=== PATIENT | female | born 1965 | race Caucasian/White ===

== ENCOUNTER → 2017-06-01 10:02 | Outpatient (CLI) | payer BC, SELFPAY ==
--- NOTE | 2017-06-01 10:09 | XR_ITS ---
XR chest 2V HISTORY: ITS.REASON: COUGH,COPD ORDERING PHYSICIAN: Angélica Mark PATIENT AGE: 52 years COMPARISON: 06/13/2016 FINDINGS: The cardiomediastinal silhouette and pulmonary vascularity are within normal limits. The lungs are clear without infiltrates, suspicious nodules, or pleural effusions. No acute bony abnormalities. IMPRESSION: Negative chest, no acute finding
== END ==
PROVIDERS: PCP Nurse Practitioner Family; Visit Provider Nurse Practitioner Family
DX: R04.2 Hemoptysis (principal); J44.0 Chronic obstructive pulmonary disease with (acute) lower respiratory infection
CPT/HCPCS: 71046

== ENCOUNTER 2017-06-18 11:29 | Emergency (ER) | payer BC, SELFPAY ==
[2017-06-18 11:29] VITALS: BP 135/90; PULSE 98; RESP 22; TEMP 37.2; O2SAT 98; BMI 23.1
--- NOTE | 2017-06-18 11:37 | HMH.EDABDPAI ---
ED Disposition Clinical Impression: Enteritis Abdominal pain Qualifiers: Abdominal location: left lower quadrant Qualified Code(s): R10.32 - Left lower quadrant pain Disposition: Home, Self-Care Condition on Discharge: Good Instructions: DI for Acute Abdomen Additional Instructions: Clear liquids overnight, Zofran for nausea, Bentyl for cramping pain, see Dr. Kumar in one to two days for recheck. Prescriptions: Ondansetron [Zofran 4mg ODT] 4 mg PO Q8HP PRN #10 tab.rapdis PRN Reason: nausea/vomiting Dicyclomine HCl [Bentyl 10mg capsule] 10 mg PO TID PRN #10 cap PRN Reason: abdominal pain Referrals: Angélica aMrk APRN [Primary Care Provider] - - Critical Care Critical Care Time: No Attestation: On , the high probability of a clinically significant, sudden or life threatening deterioration of the following system(s) required my full and direct attention, intervention and personal management. The time I documented below is in addition to time spent performing reported procedures but includes the following listed in this critical care notation. Medical Decision Making - Medical Records Medical records reviewed: Yes: I reviewed the patient's medical records. Vital Signs: 06/18/17 11:29 06/18/17 11:59 06/18/17 12:29 Temperature 99.0 F 98.0 F Temperature Source Oral Oral Pulse Rate [Left Brachial] 98 H 106 H 70 Respiratory Rate 22 22 18 Blood Pressure [Left Arm] 135/90 186/76 138/80 Blood Pressure Mean [Left Arm] 105 112 99 Blood Pressure Source [Left Arm] Automatic Cuff Automatic Cuff Manual Cuff/ Doppler Blood Pressure Position [Left Arm] Sitting Sitting Supine 02 Sat by Pulse Oximetry 98 98 98 Oxygen Delivery Method Room Air Room Air Room Air - Lab Data Lab results reviewed: Yes: I reviewed the patient's lab results. Lab Results 06/18/17 11:35: WBC 10.0, RBC 4.72, Hgb 14.0, Hct 41.8, MCV 88.6, MCH 29.6, MCHC 33.4, RDW 12.0, Plt Count 268, MPV 7.2 L, Neut % (Auto) 64.7, Lymph % (Auto) 27.0, Elbert % (Auto) 5.8, Eos % (Auto) 1.9, Baso % (Auto) 0.6, Neut # (Auto) 6.5, Lymph # (Auto) 2.7, Elbert # (Auto) 0.6, Eos # (Auto) 0.2, Baso # (Auto) 0.1 06/18/17 11:35: Sodium 140, Potassium 3.5, Chloride 104, Carbon Dioxide 27, Anion Gap 12.5, BUN 7, Creatinine 0.69, Estimated Creat Clear 90, Estimated GFR 89, Est GFR ( Amer) 107, Glucose 119 H, Calcium 8.9, Total Bilirubin 0.2, AST 12 L, ALT 24, Alkaline Phosphatase 133 H, Total Creatine Kinase 59, CK-MB (CK-2) 0.7, CK-MB (CK-2) Rel Index 1.2, Troponin I < 0.02, Total Protein 7.7, Albumin 4.1, Globulin 3.6 H, Albumin/Globulin Ratio 1.1, Amylase 75, Lipase 213 06/18/17 11:55: Urine Color Yellow, Urine Appearance Clear, Urine pH 6.0, Ur Specific Dorr <= 1.005, Urine Protein Negative, Urine Glucose (UA) Negative, Urine Ketones Negative, Urine Blood Negative, Urine Nitrate Negative, Urine Bilirubin Negative, Urine Urobilinogen 0.2, Ur Leukocyte Esterase Negative, Urine RBC Occasional, Urine WBC 3-5, Ur Squamous Epith Cells 5-10, Urine Bacteria 1+ Result diagrams: 06/18/17 11:35 06/18/17 11:35 Orders (Tests/Meds): ED MEDICATIONS Discontinued Medications Generic Name Dose Route Start Last Admin Trade Name Beverly PRN Reason Stop Dose Admin Sodium Chloride 1,000 mls @ 999 mls/hr 06/18/17 11:45 06/18/17 11:47 Sod Chlor 0.9% 1000ml Bag IV 06/18/17 12:45 999 mls/hr .Q1H1M PABLO Administration Morphine Sulfate 4 mg 06/18/17 11:45 06/18/17 11:46 Morphine 4mg/Ml Syringe IV 06/18/17 11:46 4 mg ONCE ONE Administration Morphine Sulfate 4 mg 06/18/17 11:48 06/18/17 11:58 Morphine 4mg/Ml Syringe IV 06/18/17 11:49 4 mg ONCE ONE Administration Morphine Sulfate 4 mg 06/18/17 11:56 Morphine 4mg/Ml Syringe IV 06/18/17 11:57 ONCE ONE Ondansetron HCl 4 mg 06/18/17 11:44 06/18/17 11:46 Zofran 4mg/2ml Vial IV 06/18/17 11:45 4 mg ONCE ONE Administration ORDERS Category Date Time Status Chest XR -
--- NOTE | 2017-06-18 11:43 | CT_ITS ---
CT abdomen pelvis wo con CLINICAL INDICATION: Left flank pain with nausea and vomiting ITS.REASON: ABDOMINAL AND BACK PAIN ORDERING PHYSICIAN: Kaylyn Herr MD PATIENT AGE: 52 years COMPARISON: 06/23/2016 TECHNIQUE: Axial images obtained with sagittal and coronal reformats. PROCEDURE: Oral Contrast: None IV Contrast: None . FINDINGS: The lung bases are clear. There is a 4 mm isodensity in the right hepatic lobe posteriorly nonspecific and unchanged. There has been a prior cholecystectomy. No ductal dilatation. The spleen, adrenal glands, and pancreas are unremarkable. Previously noted isodensity adjacent to the tail of the pancreas is less apparent. There are several right renal calculi the largest in the lower pole measuring up to 5 mm. No obstructing ureteral calculus is evident. No intestinal obstruction or free air is evident. There is diverticulosis of the colon but no evidence of diverticulitis. There are some fluid-filled small bowel loops present in the upper abdomen are nonspecific. These are slightly distended. No obvious transition point is evident. No evidence of appendicitis. There is a fairly well-circumscribed cystic mass in the left upper quadrant. This lies along the superior aspect of the splenic flexure of the colon measuring 3 cm. There is some mild stranding of the fat adjacent to this lesion. This may represent a pseudocyst. Previously this measured 4.6 x 4.2 cm No pelvic mass abnormal fluid collection or focal inflammatory change evident within the pelvis. As been prior hysterectomy. No acute bony anomalies. IMPRESSION: 1. 3 cm cystic lesion along the superior aspect of the splenic flexure of the colon with some mild stranding of the fat adjacent to this lesion. This may represent a pseudocyst in this patient with history of pancreatitis. This is slightly smaller when compared to the previous exam. There is some stranding of the fat adjacent to this lesion which could represent some ongoing inflammatory change. 2. Pancreas has an unremarkable appearance. 3. Right nephrolithiasis. 4. Mildly distended small bowel loops in the left upper quadrant could be due to ileus or enteritis.
[2017-06-18 11:57] LABS: Basophils # 0.1 K/mm3 (0-0.2); Basophils % 0.6 % (0.1-2.0); Eosinophils # 0.2 K/mm3 (0.0-0.4); Eosinophils % 1.9 % (0.1-12.0); Hematocrit 41.8 % (37.0-47.0); Lymphocytes # 2.7 K/mm3 (0.7-4.5); Mean Corpuscular HGB Conc 33.4 g/dL (31.8-35.4); Mean Corpuscular Hemoglobin 29.6 pg (27.0-31.2); Mean Corpuscular Volume 88.6 fl (81-99); Mean Platelet Volume 7.2 fl (7.4-10.4); Monocytes # 0.6 K/mm3 (0.1-1.0); Monocytes % 5.8 % (1.7-9.3); Neutrophils # 6.5 K/mm3 (1.8-7.8); Neutrophils % 64.7 % (37.0-80.0); Platelet Count 268 K/mm3 (142-424); Red Blood Count 4.72 M/mm3 (4.20-5.40)
[2017-06-18 11:59] VITALS: BP 186/76; PULSE 106; RESP 22; O2SAT 98
[2017-06-18 12:03] LABS: Appearance,Urine CLEAR (Clear); Bilirubin,Urine Negative (Negative); Blood, Urine Negative (Negative); Color,Urine YELLOW (Yellow); Glucose,Urine (UA) Negative (Negative); Ketones,Urine Negative (Negative); Leukocyte Esterase,Urine Negative (Negative); Nitrate,Urine Negative (Negative); Protein,Urine Negative (Negative); Specific Gravity, Urine <= 1.005 (1.005-1.030); Urobilinogen,Urine 0.2 EU/dl (0.2)
[2017-06-18 12:04] LABS: Microscopic, Urine URINE MICROSCOPIC (MICROSCOPIC)
[2017-06-18 12:18] LABS: Bacteria,Urine 1+ /lpf; RBC,Urine Occasional #/hpf (0-3)
[2017-06-18 12:22] LABS: Alanine Aminotransferase 24 U/L (12-78); Albumin Level 4.1 gm/dL (3.4-5.0); Albumin/Globulin Ratio 1.1 (1.1-1.8); Alkaline Phosphatase 133 U/L (46-116); Amylase 75 U/L (25-125); Anion Gap 12.5 mEq/L (5-15); Aspartate Amino Transferase 12 U/L (15-37); Bilirubin,Total 0.2 mg/dL (0.2-1.0); Blood Urea Nitrogen 7 mg/dL (7-18); CKMB Relative Index 1.2 U/L (0-4.0); Calcium 8.9 mg/dL (8.5-10.1); Carbon Dioxide 27 mmol/L (21.0-32.0); Chloride 104 mmol/L (98-107); Creatine Kinase 59 U/L (26-192); Creatine Kinase MB 0.7 mg/ml (0.0-3.6); Creatinine Clearance Estimated 90 mL/min (0-300); Creatinine,Serum 0.69 mg/dL (0.55-1.02); Estimated Glomerular Filt Rate 89 ml/min (>60); GFR (African American) 107 ML/MIN (>60); Globulin 3.6 gm/dl (1.3-3.2); Glucose 119 mg/dL (74-106); Lipase 213 u/L (73-393); Potassium 3.5 mmoL/L (3.5-5.1); Sodium 140 mmol/L (136-145); Total Protein,Serum 7.7 gm/dL (6.4-8.2); Troponin I < 0.02 ng/ml (0.00-0.06)
[2017-06-18 12:29] VITALS: BP 138/80; PULSE 70; RESP 18; TEMP 36.7; O2SAT 98
--- NOTE | 2017-06-18 12:51 | XR_ITS ---
XR chest portable HISTORY: Chest pain with shortness of air and cough ITS.REASON: abd pain w left arm pain ORDERING PHYSICIAN: Kaylyn Herr MD PATIENT AGE: 52 years COMPARISON: To 618 FINDINGS: The cardiomediastinal silhouette and pulmonary vascularity are within normal limits. The lungs are clear without infiltrates, suspicious nodules, or pleural effusions. No acute bony abnormalities. IMPRESSION: No change with no acute finding
[2017-06-18 13:11] VITALS: BP 116/70; PULSE 89; RESP 20; TEMP 37.1; O2SAT 100
== END 2017-06-18 13:11 | disposition home or self-care (01) ==
PROVIDERS: Emergency Provider Emergency Medicine; PCP Nurse Practitioner Family
DX: K52.9 Noninfective gastroenteritis and colitis, unspecified (principal); K86.1 Other chronic pancreatitis
CPT/HCPCS: 71045; 74176; 80053; 81001; 82150; 82550; 82553; 83690; 84484; 85025; 93005; 93041; 96365; 96374; 96375; 96376; 99283; J2405

== ENCOUNTER 2017-07-12 09:55 | Outpatient (CLI) | payer BC, SELFPAY ==
[2017-07-12 10:20] VITALS: BP 90/45; PULSE 66; RESP 20; TEMP 36.9; O2SAT 95
[2017-07-12 11:20] VITALS: BP 102/58; PULSE 68; RESP 18; TEMP 36.9; O2SAT 96
[2017-07-12 12:20] VITALS: BP 103/70; PULSE 68; RESP 20; TEMP 36.9; O2SAT 96
[2017-07-12 13:00] VITALS: BP 112/48; PULSE 68; RESP 20; TEMP 36.7; O2SAT 96
== END 2017-07-12 13:00 | disposition home or self-care (01) ==
LOC: INF 09:58
PROVIDERS: PCP Nurse Practitioner; Visit Provider Nurse Practitioner
DX: R11.2 Nausea with vomiting, unspecified (principal)
CPT/HCPCS: 96360; 96361

== ENCOUNTER → 2017-07-14 10:43 | Outpatient (POV) | payer BC, SELFPAY | PROVIDERS: PCP Nurse Practitioner; Visit Provider Physician Assistant Medical | DX: Z00.00 Encounter for general adult medical examination without abnormal findings (principal) ==

== ENCOUNTER 2017-07-14 12:02 | Emergency (ER) | payer BC, SELFPAY ==
[2017-07-14 12:04] VITALS: BP 121/74; PULSE 101; RESP 16; O2SAT 97
[2017-07-14 12:07] VITALS: BP 140/74; PULSE 104; RESP 20; TEMP 37.2; O2SAT 98; BMI 21.1
--- NOTE | 2017-07-14 12:42 | CT_ITS ---
CT abdomen pelvis w con CLINICAL INDICATION: Abdominal pain ITS.REASON: poss. pancreatitis/abd pain ORDERING PHYSICIAN: Cirilo Desir MD PATIENT AGE: 52 years COMPARISON: 06/18/2017 TECHNIQUE: Axial images obtained with sagittal and coronal reformats. All CT scans at the facility use one or more dose reduction, viz: automated exposure control; ma/kV adjustment per patient size (including targeted exams where dose is matched to indication; i.e. head); or iterative reconstruction technique. PROCEDURE: Oral Contrast: Gastroview IV Contrast: 75 mL [id number] . FINDINGS: Minimal atelectatic changes in the lung bases. There has been a prior cholecystectomy. There is mild intra and extrahepatic biliary ductal dilatation. A 5 mm isodense involves the right lobe of the liver may represent small hepatic cyst. The adrenal glands have an unremarkable appearance. There is a 6 mm stone or cluster of stones in the lower pole the right kidney. No hydronephrosis or obstructing ureteral calculi. There is stranding of the fat between the greater curvature of the stomach and the spleen and along the anterior aspect of the pancreatic tail. There is thickening of the wall of the greater curvature of the stomach. There is also mild thickening of the antrum of the stomach. A complex fluid collection is present in the left upper quadrant. This is associated with the splenic flexure of the colon. It is difficult to determine the definite dimensions of the mass as it is associated directly with the splenic flexure of the colon. The isodense portion of this lesion measures 3.9 cm AP and 3.2 cm transverse previously 3.2 x 3.4 cm. This may represent a pseudocyst or an abscess. A necrotic mass from the splenic flexure is also a consideration but felt to be less likely. Stranding of the fat in the left upper quadrant is somewhat worse on today's exam. No intestinal obstruction or free air. No evidence of appendicitis or diverticulitis. There is a small amount fluid in the pelvis for urinary bladder is somewhat distended. There is been prior hysterectomy. IMPRESSION: 1. Slight increase in stranding of the fat within the left upper quadrant adjacent to the pancreatic tail with slight increased thickening of the lateral wall the stomach consistent with pancreatitis with mild phlegmonous change. 2. Slight increase in size of cystic lesion within the left upper quadrant associated with the splenic flexure and may represent a pseudocyst of the splenic flexure. Abscess is included in the differential diagnosis. Necrotic mass of the splenic flexure also a consideration but felt to be less likely
[2017-07-14 12:52] LABS: Basophils % 0.3 % (0.1-2.0); Eosinophils % 0.2 % (0.1-12.0); Hemoglobin 13.1 g/dL (12.2-16.2); Lymphocytes # 1.6 K/mm3 (0.7-4.5); Lymphocytes % 14.4 K/mm3 (10-50); Mean Corpuscular HGB Conc 33.5 g/dL (31.8-35.4); Mean Corpuscular Hemoglobin 30.3 pg (27.0-31.2); Mean Corpuscular Volume 90.3 fl (81-99); Mean Platelet Volume 7.2 fl (7.4-10.4); Neutrophils # 8.3 K/mm3 (1.8-7.8); Neutrophils % 76.1 % (37.0-80.0); Platelet Count 292 K/mm3 (142-424); Red Blood Count 4.32 M/mm3 (4.20-5.40); Red Cell Distribution Width 12.5 % (11.5-17.5); White Blood Count 10.9 K/mm3 (4.8-10.8)
[2017-07-14 12:59] LABS: Alanine Aminotransferase 16 U/L (12-78); Albumin Level 3.4 gm/dL (3.4-5.0); Albumin/Globulin Ratio 0.9 (1.1-1.8); Alkaline Phosphatase 168 U/L (46-116); Amylase 49 U/L (25-125); Anion Gap 14.1 mEq/L (5-15); Bilirubin,Total 0.6 mg/dL (0.2-1.0); Blood Urea Nitrogen 12 mg/dL (7-18); Calcium 8.8 mg/dL (8.5-10.1); Carbon Dioxide 26 mmol/L (21.0-32.0); Chloride 101 mmol/L (98-107); Creatinine Clearance Estimated 124 mL/min (0-300); Creatinine,Serum 0.47 mg/dL (0.55-1.02); Estimated Glomerular Filt Rate 138 ml/min (>60); GFR (African American) 167 ML/MIN (>60); Glucose 92 mg/dL (74-106); Lipase 184 u/L (73-393); Sodium 138 mmol/L (136-145); Total Protein,Serum 7.4 gm/dL (6.4-8.2)
[2017-07-14 13:01] LABS: Aspartate Amino Transferase 13 U/L (15-37); Potassium 3.1 mmoL/L (3.5-5.1)
--- NOTE | 2017-07-14 13:07 | HMH.EDGENADL ---
ED Disposition Clinical Impression: Idiopathic chronic pancreatitis, Pancreatic pseudocyst Disposition: Home, Self-Care Condition on Discharge: Fair Instructions: DI for Pancreatitis Additional Instructions: Ryan Adamson will contact you to schedule EUS and cyst drainage. He has transmitted a prescription for Zofran for nausea and vomiting. [place] as prescribed for pain. Additional instructions for CONTROLLED SUBSTANCES: You have been prescribed a medication that is a controlled substance. Controlled substances include pain medications known as opiates and sedative nerve medications known as benzodiazepines. Some common opiates include: Codeine (such as Tylenol #3) Hydrocodone (Vicodin, Lortab, Lorcet, [place]) Oxycodone (Percocet, Percodan, Oxycodone, Oxy IR) Some common benzodiazepines include: Diazepam (Valium) Lorazepam (Ativan) Alprazolam (Xanax) Clonazepam (Klonopin) Oxazepam (Serax) All of these controlled substances are highly addictive and frequently abused. Misuse can and frequently does lead to addiction as well as overdose and . Medication should be stored in a locked cabinet or other secure storage unit. Do not store the medication in a motor vehicle. Short term supplies, 3 days or less, are prescribed because of the highly addictive nature of the medication. Any of the controlled substance medication NOT taken should be disposed of properly and NOT SAVED. The recommended method of disposing of unused medications is: Place the medicines in a sealable plastic bag. If the medicine is a solid, crush it or add water to dissolve it. Add something undesirable (cat litter, coffee grounds, etc.) Dispose of sealed bag in household trash Do not flush or pour unused medicines down a sink or drain. Controlled substances should not be shared, given away or sold. Because of the addictive nature and frequent abuse, these medications are sometimes stolen. These medications should be kept in a safe place where they cannot be stolen. Do not keep them in your car or purse. Lost or stolen prescriptions for controlled substances WILL NOT BE REFILLED in this emergency department, regardless of whether a police report was filed. Prescriptions: Hydrocod/Acet 5/325 mg [[place] 5/325mg tablet] 1 tab PO Q6HP PRN #10 tab PRN Reason: Pain Referrals: Lynn Matt APRN [Primary Care Provider] - - Critical Care Critical Care Time: No Attestation: On 07/14/17, the high probability of a clinically significant, sudden or life threatening deterioration of the following system(s) required my full and direct attention, intervention and personal management. The time I documented below is in addition to time spent performing reported procedures but includes the following listed in this critical care notation. Medical Decision Making - Stepan Inquiry Pt receiving controlled substance: Yes Ste[place] was queried for this patient: Yes Reference #:: [id number] Risks and benefits of using a controlled substance: were discussed with pt by me Comment: 1 rx for methadone july 2016 Vital Signs: 07/14/17 12:04 07/14/17 12:07 07/14/17 14:21 Temperature 98.9 F Temperature Source Oral Pulse Rate [Right Brachial] 101 H 104 H 88 Respiratory Rate 16 20 18 Blood Pressure [Right Arm] 121/74 140/74 153/86 Blood Pressure Mean [Right Arm] 89 96 108 Blood Pressure Source [Right Arm] Automatic Cuff Automatic Cuff Blood Pressure Position [Right Arm] Sitting Sitting 02 Sat by Pulse Oximetry 97 98 98 Oxygen Delivery Method Room Air Room Air 07/14/17 14:30 07/14/17 16:00 Temperature Temperature Source Pulse Rate [Right Brachial] 107 H 94 H Respiratory Rate 16 16 Blood Pressure [Right Arm] 113/39 111/67 Blood Pressure Mean [Right Arm] 63 81 Blood Pressure Source [Right Arm] Blood Pressure Position [Right Arm] 02 Sat by Pulse Oximetry 97 97 Oxygen Delivery Method - Lab Data Lab Results
--- NOTE | 2017-07-14 13:20 | PC.NURSE ---
Report received from DENG Arellano at this time.
[2017-07-14 14:21] VITALS: BP 153/86; PULSE 88; RESP 18; O2SAT 98
[2017-07-14 14:30] VITALS: BP 113/39; PULSE 107; RESP 16; O2SAT 97
[2017-07-14 16:00] VITALS: BP 111/67; PULSE 94; RESP 16; O2SAT 97
--- NOTE | 2017-07-14 16:41 | PC.NURSE ---
TRANSFORMER BUILDER TO PAGE DR MONTOYA (CONSUMER INSIGHT ANALYST FOR DR SHINE)
[2017-07-14 17:06] VITALS: BP 111/66; PULSE 97; RESP 20; TEMP 36.7; O2SAT 97
== END 2017-07-14 17:06 | disposition home or self-care (01) ==
PROVIDERS: Emergency Provider Emergency Medicine; PCP Nurse Practitioner
DX: K86.1 Other chronic pancreatitis (principal); K86.3 Pseudocyst of pancreas; F17.210 Nicotine dependence, cigarettes, uncomplicated; Z79.899 Other long term (current) drug therapy
CPT/HCPCS: 74177; 80053; 82150; 83690; 85025; 96365; 96375; 99284; J2405; Q9967

== ENCOUNTER → 2017-08-13 10:12 | Outpatient (CLI) | payer BC, SELFPAY | PROVIDERS: PCP Nurse Practitioner; Visit Provider Nurse Practitioner | DX: R00.2 Palpitations (principal) | CPT/HCPCS: 93225; 93226 ==

== ENCOUNTER → 2017-11-26 11:11 | Outpatient (CLI) | payer BC, SELFPAY ==
--- NOTE | 2017-11-26 11:39 | XR_ITS ---
XR foot RT min 3V HISTORY: ITS.REASON: RT FOOT PAIN ORDERING PHYSICIAN: Shane Kumar MD PATIENT AGE: 52 years COMPARISON: None FINDINGS: No fracture or dislocation. No lytic or blastic change. There is normal mineralization.. The joint spaces are well-preserved. No significant degenerative/arthritic changes. No erosive changes evident. IMPRESSION: Negative, no acute finding
== END ==
PROVIDERS: PCP Family Medicine; Visit Provider Family Medicine
DX: M79.671 Pain in right foot (principal)
CPT/HCPCS: 73630

== ENCOUNTER → 2018-12-13 08:58 | Outpatient (POV) | payer BC, SELFPAY | PROVIDERS: Visit Provider Otolaryngology | DX: Z00.00 Encounter for general adult medical examination without abnormal findings (principal) ==

== ENCOUNTER 2020-01-18 13:16 | Emergency (ER) | payer OTHER, SELFPAY ==
--- NOTE | 2020-01-18 13:16 | ECG_ITS ---
APPROVED REPORT Exam: Resting ECG HR:83 bpm ECG Measurements Heart Rate 83 AXES MT 140 P 74 QRSd 70 QRS 65 QT 416 T 52 QTc 488 <Conclusion> Normal sinus rhythm Prolonged QT Abnormal ECG Electronically signed by : Shane Mojica, 01/20/2020 06:27:35
[2020-01-18 13:32] VITALS: BP 147/84; PULSE 81; RESP 16; TEMP 36.9; O2SAT 98; BMI 21.6
--- NOTE | 2020-01-18 13:39 | XR_ITS ---
PROCEDURE: XR CHEST PORTABLE CLINICAL HISTORY: CHEST PAIN COMPARISON: CR CXR1VP XR chest portable from 06/18/2017 CR CXR1VP XR chest portable from 04/09/2018 CR XR CHEST PORTABLE from 01/10/2019 FINDINGS: The cardiomediastinal silhouette and pulmonary vascularity are within normal limits. The lungs are clear without infiltrates, suspicious nodules, or pleural effusions. No acute bony abnormalities. IMPRESSION: No acute findings. Dictated by: Tex Mullen MD 01/18/2020 15:23 Tex Mullen MD in [place] 01/18/2020 15:23
[2020-01-18 13:56] LABS: Basophils # 0.1 K/mm3 (0-0.2); Basophils % 0.6 % (0.1-2.0); Eosinophils # 0.2 K/mm3 (0.0-0.4); Eosinophils % 2.4 % (0.1-12.0); Hematocrit 43.6 % (37.0-47.0); Hemoglobin 14.2 g/dL (12.2-16.2); Lymphocytes # 2.6 K/mm3 (0.7-4.5); Lymphocytes % 31.2 % (10-50); Mean Corpuscular HGB Conc 32.5 g/dL (31.8-35.4); Mean Corpuscular Hemoglobin 29.6 pg (27.0-31.2); Mean Corpuscular Volume 91.1 fl (81-99); Mean Platelet Volume 6.9 fl (7.4-10.4); Monocytes # 0.6 K/mm3 (0.1-1.0); Monocytes % 7.2 % (1.7-9.3); Neutrophils # 4.9 K/mm3 (1.8-7.8); Neutrophils % 58.6 % (37.0-80.0); Platelet Count 301 K/mm3 (142-424); Red Blood Count 4.78 M/mm3 (4.20-5.40); Red Cell Distribution Width 12.9 % (11.5-17.5); White Blood Count 8.3 K/mm3 (4.8-10.8)
[2020-01-18 13:58] LABS: Amylase 76 U/L (30-110); Anion Gap 9.9 mEq/L (5-15); Blood Urea Nitrogen 9 mg/dl (7-17); Calcium 10.1 mg/dl (8.4-10.2); Carbon Dioxide 30 mmol/L (22.0-30.0); Chloride 105 mmol/L (98-107); Creatinine Clearance Estimated 146 mL/min (50-200); Estimated Glomerular Filt Rate 165 ml/min (>60); GFR (African American) 200 ML/MIN (>60); Glucose 101 mg/dl (74-100); Potassium 3.9 mmoL/L (3.5-5.1); Sodium 141 mmol/L (136-145)
[2020-01-18 13:59] LABS: Alanine Aminotransferase 17 U/L (12-78); Albumin Level 4.9 g/dl (3.5-5.0); Alkaline Phosphatase 162 U/L (38-126); Aspartate Amino Transferase 25 U/L (14-36); Bilirubin,Direct 0.2 mg/dl (0.0-0.4); Bilirubin,Indirect 0.2 mg/dL (0.0-0.9); Bilirubin,Total 0.4 mg/dl (0.2-1.3); Bilirubin,Unconjugated 0.2 mg/dL (0.0-1.1); Lipase 140 U/L (23-300); Total Protein,Serum 8.5 g/dl (6.3-8.2)
[2020-01-18 14:00] VITALS: BP 120/71; PULSE 78
[2020-01-18 14:11] LABS: Troponin I < 0.01 ng/ml (0.00-0.034)
[2020-01-18 14:49] VITALS: BP 120/82; PULSE 71; RESP 20; O2SAT 97
[2020-01-18 15:53] LABS: Creatine Kinase 43 U/L (30-135)
[2020-01-18 16:00] VITALS: BP 123/74; PULSE 66
[2020-01-18 16:30] VITALS: BP 116/76; PULSE 70
--- NOTE | 2020-01-18 16:34 | PC.NURSE ---
AT BEDSIDE UPDATED ON PLAN OF CARE
[2020-01-18 17:08] LABS: Troponin I < 0.01 ng/ml (0.00-0.034)
--- NOTE | 2020-01-18 18:19 | HMH.EDCP ---
ED Disposition Clinical Impression: Hypertension, Chest pain, atypical Disposition: Home, Self-Care Condition on Discharge: Good Instructions: DI for Atypical Chest Pain Additional Instructions: Please follow-up with primary care to get an outpatient stress test. Referrals: PCP,No [Primary Care Provider] - - Critical Care Critical Care Time: No Attestation: On 01/18/20, the high probability of a clinically significant, sudden or life threatening deterioration of the following system(s) required my full and direct attention, intervention and personal management. The time I documented below is in addition to time spent performing reported procedures but includes the following listed in this critical care notation. Medical Decision Making - Medical Records Medical records reviewed: Yes: I reviewed the patient's medical records. - Stepan Inquiry Pt receiving controlled substance: No Vital Signs: 01/18/20 13:32 01/18/20 14:00 01/18/20 14:49 Temperature 98.5 F Temperature Source Oral Pulse Rate [Left Radial] 81 78 71 Respiratory Rate 16 20 Blood Pressure [Right Arm] 147/84 H 120/71 120/82 Blood Pressure Mean [Right Arm] 105 87 94 Blood Pressure Source [Right Arm] Automatic Cuff Blood Pressure Position [Right Arm] Sitting Sitting Sitting 02 Sat by Pulse Oximetry 98 97 Oxygen Delivery Method Room Air Nasal Cannula Oxygen Flow Rate (LPM) 2 01/18/20 16:00 01/18/20 16:30 Temperature Temperature Source Pulse Rate [Left Radial] 66 70 Respiratory Rate Blood Pressure [Right Arm] 123/74 116/76 Blood Pressure Mean [Right Arm] 90 89 Blood Pressure Source [Right Arm] Blood Pressure Position [Right Arm] Sitting Sitting 02 Sat by Pulse Oximetry Oxygen Delivery Method Oxygen Flow Rate (LPM) - Lab Data Lab results reviewed: Yes: I reviewed the patient's lab results. Lab Results 01/18/20 13:10: WBC 8.3, RBC 4.78, Hgb 14.2, Hct 43.6, MCV 91.1, MCH 29.6, MCHC 32.5, RDW 12.9, Plt Count 301, MPV 6.9 L, Neut % (Auto) 58.6, Lymph % (Auto) 31.2, Rice % (Auto) 7.2, Eos % (Auto) 2.4, Baso % (Auto) 0.6, Neut # (Auto) 4.9, Lymph # (Auto) 2.6, Rice # (Auto) 0.6, Eos # (Auto) 0.2, Baso # (Auto) 0.1 01/18/20 13:10: Sodium 141, Potassium 3.9, Chloride 105, Carbon Dioxide 30, Anion Gap 9.9, BUN 9, Creatinine 0.40 L, Estimated Creat Clear 146, Estimated GFR 165, Est GFR ( Amer) 200, Glucose 101 H, Calcium 10.1, Troponin I < 0.01, Amylase 76 01/18/20 13:10: Total Bilirubin 0.4, Direct Bilirubin 0.2, Conjugated Bilirubin 0.0, Indirect Bilirubin 0.2, Unconjugated Bilirubin 0.2, AST 25, ALT 17, Alkaline Phosphatase 162 H, Total Protein 8.5 H, Albumin 4.9, Lipase 140 01/18/20 13:10: Total Creatine Kinase 43 01/18/20 16:25: Troponin I < 0.01 Result diagrams: 01/18/20 13:10 01/18/20 13:10 Orders (Tests/Meds): ED MEDICATIONS Discontinued Medications Generic Name Dose Route Start Last Admin Trade Name Freq PRN Reason Stop Dose Admin Nitroglycerin 1 gm 01/18/20 13:40 01/18/20 13:48 Nitroglycerin 1 Inch Oint Udp TD 01/18/20 13:41 1 gm ONCE ONE Administration ORDERS Category Date Time Status Troponin I Q3H Lab 01/18/20 19:45 Ordered - Radiology Data #1 Image(s): Chest Image Reviewed: Yes I reviewed the patient's radiology image w/the ED provider Preliminary Findings: Normal/NAD - ECG Data Tracing #1 I reviewed this ECG and interpreted as documented below: Normal Sinus Rhythm: Yes Medical Decision Narrative: Had a initial troponin and a 3-hour troponin both which were negative patient is presently pain-free. Chest Pain HPI - General Chief Complaint: Chest Pain Stated Complaint: chest pain Time Seen by Provider: 01/18/20 18:19 Mode of Arrival: EMS Source of Information: Patient Limitations: No Limitations Description of Symptoms (Recalled from ER Triage Doc. by RN): TO ED PER SQUAD WITH C/O PRESSURE CHEST PAIN RADIATING INTO BACK, SOB, NAUSEA STAR
[2020-01-18 18:26] VITALS: BP 123/71; PULSE 78; RESP 16; TEMP 36.6; O2SAT 98
== END 2020-01-18 18:27 | disposition home or self-care (01) ==
PROVIDERS: Emergency Provider Family Medicine
DX: R07.89 Other chest pain (principal); I10 Essential (primary) hypertension; K21.9 Gastro-esophageal reflux disease without esophagitis; G43.709 Chronic migraine without aura, not intractable, without status migrainosus; J44.9 Chronic obstructive pulmonary disease, unspecified; Z86.73 Personal history of transient ischemic attack (TIA), and cerebral infarction without residual deficits; F17.210 Nicotine dependence, cigarettes, uncomplicated; Z79.899 Other long term (current) drug therapy
CPT/HCPCS: 71045; 80048; 80076; 82150; 82550; 83690; 84484; 85025; 93005; 99284

== ENCOUNTER → 2020-03-05 08:28 | Outpatient (CLI) | payer OTHER, SELFPAY | PROVIDERS: PCP Family Medicine; Visit Provider Family Medicine | DX: Z03.818 Encounter for observation for suspected exposure to other biological agents ruled out (principal) | CPT/HCPCS: U0003 ==

== ENCOUNTER → 2020-05-24 13:30 | Outpatient (CLI) | payer OTHER, SELFPAY ==
--- NOTE | 2020-05-24 15:43 | CA_ITS ---
APPROVED REPORT EXAM: Comprehensive 2D, Doppler, and color-flow Echocardiogram Hunter Guide: Dipti Best RVT Ht: 5 ft 5 in Wt: 140lbs BSA: 1.70 BP: 146/59 mmHg Indications: SOA,EDEMA,SMOKER,GERD 2D Dimensions LVOT 2.09 cm (M/F) 1.5-2.5 M-Mode Dimensions RVDd 2.75 cm (0.9-2.6) LA Diam 3.21 cm (1.9-4.0) LVDd 4.44 cm (3.5-5.7) Ao Diam 2.48 cm (2.0-3.7) LVDs 2.79 cm (3.5-5.7) IVSd 0.79 cm (0.6-1.1) PWd 0.68 cm (0.6-1.1) EF (Teich) 67.30% FS 37.20% EDV (Teich) 89.60 mL ESV (Teich) 29.30 mL LV Diastology E Decel Time 233.00 (160-240 msec) E/A Ratio 0.9 MED E' 4.70 (< 7 cm/sec) E'/MED E' Ratio 15.62 (>14) LAT E' 5.40 (<10 cm/sec) E/LAT E' Ratio 13.59 (>14) Aortic Valve AI PHT 715.00 ms Mitral Valve MV E Max Ramirez. 73.00 (40-130 cm/s) MV A Velocity 84.00 (40-130 cm/s) E/A Ratio 0.87 MV Decel. Time 233.00 (160-240 ms) MV PHT 68.00 ms Pulmonary Valve PV Peak Velocity 60.00 (50-150 cm/s) Tricuspid Valve TR P. Velocity 334.00 cm/s Left Ventricle Left atrium is mildly enlarged, left ventricle is normal size, mild concentric left ventricular hypertrophy, visually estimated ejection fraction 55% with no regional wall motion abnormality, grade 1 diastolic dysfunction seen with tissue Doppler evidence of raise left atrial pressure. Right Ventricle Right atrium and right ventricle mildly enlarged with normal contractility. Aortic Valve Aortic valve is minimally thickened and fibrosed. There is no aortic stenosis or aortic insufficiency. Mitral Valve Mitral valve leaflets are minimally thickened, there is no mitral stenosis, there is mild mitral regurgitation. Tricuspid Valve Tricuspid valve is grossly normal, there is mild tricuspid regurgitation, tricuspid regurgitation jet velocity is inadequate for calculation of the right ventricular systolic pressure. Pulmonic Valve Pulmonic valve is poorly visualized. Great Vessels Aortic root is normal size. Pericardium No significant pericardial effusion noted. Conclusion 1. Mildly enlarged left atrium, normal left ventricular size, mild concentric left ventricular hypertrophy, visually estimated ejection fraction 55% with no regional wall motion abnormality, grade 1 diastolic dysfunction seen with tissue Doppler evidence of raise left atrial pressure. 2. Mild mitral and tricuspid regurgitation. 3. No significant pericardial effusion noted. Electronically signed by : Dallas Bustillo, 05/24/2020 16:35:25
== END ==
PROVIDERS: PCP Family Medicine; Visit Provider Family Medicine
DX: R06.00 Dyspnea, unspecified (principal); R60.0 Localized edema
CPT/HCPCS: 93306

== ENCOUNTER → 2020-12-19 12:44 | Outpatient (CLI) | payer OTHER, SELFPAY ==
[2020-12-19 13:37] LABS: Basophils # 0.1 K/mm3 (0-0.2); Basophils % 0.9 % (0.1-2.0); Eosinophils # 0.2 K/mm3 (0.0-0.4); Eosinophils % 2.3 % (0.1-12.0); Hematocrit 43.2 % (37.0-47.0); Hemoglobin 14.4 g/dL (12.2-16.2); Lymphocytes # 2.2 K/mm3 (0.7-4.5); Mean Corpuscular HGB Conc 33.4 g/dL (31.8-35.4); Mean Corpuscular Hemoglobin 30.5 pg (27.0-31.2); Mean Corpuscular Volume 91.4 fl (81-99); Mean Platelet Volume 8.1 fl (7.4-10.4); Monocytes # 0.4 K/mm3 (0.1-1.0); Monocytes % 6.1 % (1.7-9.3); Neutrophils # 3.8 K/mm3 (1.8-7.8); Neutrophils % 57.8 % (37.0-80.0); Platelet Count 294 K/mm3 (142-424); Red Blood Count 4.73 M/mm3 (4.20-5.40); Red Cell Distribution Width 12.9 % (11.5-17.5); White Blood Count 6.6 K/mm3 (4.8-10.8)
[2020-12-19 15:01] LABS: Alanine Aminotransferase 16 U/L (12-78); Albumin Level 4.4 g/dl (3.5-5.0); Albumin/Globulin Ratio 1.6 (1.1-1.8); Alkaline Phosphatase 120 U/L (38-126); Anion Gap 14.3 mEq/L (5-15); Aspartate Amino Transferase 20 U/L (14-36); Bilirubin,Total 0.3 mg/dl (0.2-1.3); Blood Urea Nitrogen 19 mg/dl (7-17); Calcium 9.4 mg/dl (8.4-10.2); Carbon Dioxide 28 mmol/L (22.0-30.0); Chloride 100 mmol/L (98-107); Estimated Glomerular Filt Rate 74 ml/min (>60); GFR (African American) 89 ML/MIN (>60); Globulin 2.8 g/dL (1.3-3.2); Glucose 85 mg/dl (74-100); Potassium 3.3 mmoL/L (3.5-5.1); Sodium 139 mmol/L (136-145); Total Protein,Serum 7.2 g/dl (6.3-8.2)
== END ==
PROVIDERS: PCP Family Medicine; Visit Provider Nurse Practitioner Family
DX: Z20.822 Contact with and (suspected) exposure to COVID-19 (principal); U07.1 COVID-19; R50.9 Fever, unspecified; R11.2 Nausea with vomiting, unspecified
CPT/HCPCS: 36415; 80053; 85025; U0003

== ENCOUNTER → 2021-05-12 09:25 | Outpatient (CLI) | payer OTHER, SELFPAY | PROVIDERS: Visit Provider Nurse Practitioner | DX: U07.1 COVID-19 (principal) | CPT/HCPCS: C9803; U0003; U0005 ==

== ENCOUNTER → 2021-08-15 07:52 | Outpatient (CLI) | payer OTHER, SELFPAY ==
--- NOTE | 2021-08-15 07:55 | MM_ITS ---
PROCEDURE INFORMATION: Exam: MG Bilateral Screening 3D Mammography Exam date and time: 08/15/2021 7:54 AM Age: 56 years old Clinical indication: Screening examination TECHNIQUE: Imaging protocol: Bilateral Screening tomosynthesis and 2D mammography including computer-aided detection (CAD) when performed. COMPARISON: 1. MG DMSB DIG MAMM-SCREEN DANA W/CAD 10/12/2016 8:37 AM 2. MG DMSB DIG MAMM-SCREEN DANA 10/10/2015 9:18 AM FINDINGS: MAMMOGRAPHY: Breast composition: The breasts are heterogeneously dense, which may obscure small masses. Mass: None. Architectural distortion: None. Calcifications: No suspicious calcifications. Asymmetric density: None. Skin thickening: None. Axillary adenopathy: None. IMPRESSION: No mammographic evidence of malignancy. Annual screening is recommended unless otherwise clinically indicated. ASSESSMENT: BI-RADS Category 1: Negative
== END ==
PROVIDERS: PCP Family Medicine; Visit Provider Nurse Practitioner Family
DX: Z12.31 Encounter for screening mammogram for malignant neoplasm of breast (principal)
CPT/HCPCS: 77063; 77067

== ENCOUNTER → 2021-11-05 09:41 | Outpatient (CLI) | payer OTHER, SELFPAY | PROVIDERS: PCP Family Medicine; Visit Provider Nurse Practitioner Family | DX: Z20.822 Contact with and (suspected) exposure to COVID-19 (principal); J06.9 Acute upper respiratory infection, unspecified | CPT/HCPCS: C9803; U0003; U0005 ==

== ENCOUNTER → 2021-11-26 09:10 | Outpatient (CLI) | payer OTHER, SELFPAY ==
--- NOTE | 2021-11-26 09:18 | XR_ITS ---
FINAL REPORT CLINICAL HISTORY: ACUTE MIDLINE LOW BACK PAIN WITH RIGHT-SIDED SCIATICA FINDINGS: LUMBAR SPINE 5 views of the lumbar spine were obtained. There is no evidence of fracture or dislocation. The vertebral alignment is normal. There are mild and moderate degenerative changes. There is facet arthropathy at L4-5 and L5-S1. There are moderate vascular calcifications. There are several right renal stones measuring up to 6 mm. There are postoperative changes in the right abdomen. IMPRESSION: Mild and moderate degenerative change as described. Several right renal stones measuring up to 6 mm. Reviewed, Interpreted and Dictated by Antonio Hobson III, MD Transcribed by Jennifer Jain Authenticated and . [facility]
== END ==
PROVIDERS: PCP Nurse Practitioner Family; Visit Provider Nurse Practitioner Family
DX: M54.41 Lumbago with sciatica, right side (principal)
CPT/HCPCS: 72110

== ENCOUNTER → 2021-12-01 14:11 | Outpatient (CLI) | payer OTHER, SELFPAY ==
--- NOTE | 2021-12-01 14:16 | CT_ITS ---
FINAL REPORT TECHNIQUE: Axial images through the abdomen and pelvis were performed without contrast.This study was performed with techniques to keep radiation doses as low as reasonably achievable, (ALARA). Individualized dose reduction techniques using automated exposure control or adjustment of mA and/or kV according to the patient's size were employed. CLINICAL HISTORY: RT SIDE KIDNEY STONE SEEN ON XRAY FINDINGS: ABDOMEN: The lung bases are clear. The heart size is normal. Limited images of the liver are unremarkable. Patient is status post cholecystectomy. The spleen is normal. No adrenal mass is identified. The aorta is normal in caliber. There is no significant free fluid or adenopathy. There are several, nonobstructing right renal stones measuring up to 10 mm. There is no hydronephrosis. There are moderate vascular calcifications. PELVIS: The appendix is normal. Patient is status post hysterectomy. The urinary bladder is unremarkable. There is no significant free fluid or adenopathy. IMPRESSION: Nonobstructing right nephrolithiasis without hydronephrosis. Reviewed, Interpreted and Dictated by Antonio Hobson III, MD Transcribed by Evette Purvis Authenticated and [facility]
== END ==
PROVIDERS: PCP Nurse Practitioner Family; Visit Provider Family Medicine
DX: N20.0 Calculus of kidney (principal)
CPT/HCPCS: 74176

== ENCOUNTER 2021-12-06 16:55 | Emergency (ER) | payer OTHER, SELFPAY ==
[2021-12-06 16:57] VITALS: BP 153/73; PULSE 91; RESP 16; TEMP 36.9; O2SAT 96; BMI 23.3
[2021-12-06 17:14] VITALS: BP 153/73; PULSE 90; RESP 18; O2SAT 96
--- NOTE | 2021-12-06 17:25 | PC.NURSE ---
MD at bedside assessing pt
[2021-12-06 17:30] VITALS: BP 155/87; PULSE 90; RESP 16; O2SAT 96
--- NOTE | 2021-12-06 17:35 | HMH.EDABDPAI ---
ED Disposition Condition on Discharge: Good - Critical Care Critical Care Time: No <Casey Santiago - Last Filed: 12/06/21 20:04> <Leonides Farr - Last Filed: 12/06/21 22:03> Clinical Impression: Right sided abdominal pain Disposition: Home, Self-Care Instructions: DI for Acute Abdominal Pain Additional Instructions: call pcp for follow up Referrals: Jeffrey Aguilera MD [Primary Care Provider] - Attestation: On 12/06/21, the high probability of a clinically significant, sudden or life threatening deterioration of the following system(s) required my full and direct attention, intervention and personal management. The time I documented below is in addition to time spent performing reported procedures but includes the following listed in this critical care notation. Medical Decision Making - Medical Records Medical records reviewed: Yes: I reviewed the patient's medical records. - Stepan Inquiry Pt receiving controlled substance: No - Lab Data Result diagrams: 12/06/21 18:16 12/06/21 18:16 <Casey Santiago - Last Filed: 12/06/21 20:04> - Lab Data Result diagrams: 12/06/21 18:16 12/06/21 18:16 - CT Data CT Scan: Abdomen, Pelvis Time Received: 22:[address] Reviewed: Yes: I have viewed the radiologist's interpretation Preliminary Findings: Normal/NAD <Leonides Farr - Last Filed: 12/06/21 22:03> Vital Signs: 12/06/21 16:57 12/06/21 17:14 12/06/21 17:30 Temperature 98.5 F Temperature Source Oral Pulse Rate 90 90 Pulse Rate [Right Radial] 91 H Respiratory Rate 16 18 16 Blood Pressure 153/73 H 155/87 H Blood Pressure [Right Arm] 153/73 H Blood Pressure Mean 101 109 Blood Pressure Mean [Right Arm] 99 Blood Pressure Source [Right Arm] Automatic Cuff Blood Pressure Position [Right Arm] Left Lateral 02 Sat by Pulse Oximetry 96 96 96 Oxygen Delivery Method Room Air 12/06/21 18:01 12/06/21 18:30 Temperature Temperature Source Pulse Rate 86 86 Pulse Rate [Right Radial] Respiratory Rate 18 18 Blood Pressure 134/66 147/79 H Blood Pressure [Right Arm] Blood Pressure Mean 100 105 Blood Pressure Mean [Right Arm] Blood Pressure Source [Right Arm] Blood Pressure Position [Right Arm] 02 Sat by Pulse Oximetry 96 96 Oxygen Delivery Method - Lab Data Lab Results 12/06/21 18:16: WBC 8.0, RBC 3.98 L, Hgb 13.3, Hct 42.5, MCV 106.9 H, MCH 33.5 H, MCHC 31.4 L, RDW 14.3, Plt Count 364, MPV 7.1 L, Neut % (Auto) 71.2, Lymph % (Auto) 20.1, [place] % (Auto) 6.4, Eos % (Auto) 1.4, Baso % (Auto) 0.9, Neut # (Auto) 5.7, Lymph # (Auto) 1.6, [place] # (Auto) 0.5, Eos # (Auto) 0.1, Baso # (Auto) 0.1 12/06/21 18:16: Sodium 137, Potassium 3.8, Chloride 102, Carbon Dioxide 31 H, Anion Gap 7.8, BUN 13, Creatinine 0.40 L, Estimated Creat Clear 154, Estimated GFR 164, Est GFR ( Amer) 198, Glucose 111 H, Calcium 9.9, Total Bilirubin 0.1 L, AST 28, ALT 25, Alkaline Phosphatase 124, Total Protein 7.7, Albumin 4.7, Globulin 3.0, Albumin/Globulin Ratio 1.6, Lipase 56 12/06/21 19:20: Urine Color Yellow, Urine Appearance Clear, Urine pH 6.0, Ur Specific [place] 1.020, Urine Protein Trace, Urine Glucose (UA) Negative, Urine Ketones Trace, Urine Blood Trace-l, Urine Nitrate Negative, Urine Bilirubin Negative, Urine Urobilinogen 0.2, Ur Leukocyte Esterase Negative, Urine RBC 3-5, Urine WBC 3-5, Ur Squamous Epith Cells 5-10 Orders (Tests/Meds): ED MEDICATIONS Generic Name Dose Route Start Last Admin Trade Name Freq PRN Reason Stop Dose Admin Sodium Chloride 1,000 mls @ 999 mls/hr 12/06/21 17:45 12/06/21 18:29 Sod Chlor 0.9% 1000ml Bag IV 12/06/21 18:45 999 mls/hr .Q1H1M PABLO Administration Sodium Chloride 10 ml 12/06/21 19:19 Sodium Chloride 0.9% 10ml Vial IV 01/05/22 19:18 NEEDED PRN dilute protonix Discontinued Medications Generic Name Dose Route Start Last Admin Trade Name Freq PRN Reason Stop Dose Admin Metoclopramide HCl 5 mg 08
[2021-12-06 18:01] VITALS: BP 134/66; PULSE 86; RESP 18; O2SAT 96
[2021-12-06 18:29] LABS: Chloride 102 mmol/L (98-107)
[2021-12-06 18:30] VITALS: BP 147/79; PULSE 86; RESP 18; O2SAT 96
[2021-12-06 18:30] LABS: Potassium 3.8 mmoL/L (3.5-5.1); Sodium 137 mmol/L (136-145)
[2021-12-06 18:32] LABS: Alanine Aminotransferase 25 U/L (12-78); Alkaline Phosphatase 124 U/L (38-126); Anion Gap 7.8 mEq/L (5-15); Aspartate Amino Transferase 28 U/L (14-36); Blood Urea Nitrogen 13 mg/dl (7-17); Carbon Dioxide 31 mmol/L (22.0-30.0); Creatinine Clearance Estimated 154 mL/min (50-200); Estimated Glomerular Filt Rate 164 ml/min (>60); GFR (African American) 198 ML/MIN (>60); Lipase 56 U/L (23-300)
[2021-12-06 18:33] LABS: Albumin Level 4.7 g/dl (3.5-5.0); Albumin/Globulin Ratio 1.6 (1.1-1.8); Bilirubin,Total 0.1 mg/dl (0.2-1.3); Calcium 9.9 mg/dl (8.4-10.2); Glucose 111 mg/dl (74-100); Total Protein,Serum 7.7 g/dl (6.3-8.2)
--- NOTE | 2021-12-06 18:38 | CT_ITS ---
PROCEDURE INFORMATION: Exam: CT Abdomen And Pelvis With Contrast Exam date and time: 12/06/2021 6:58 PM Age: 56 years old Clinical indication: Abdominal pain; Additional info: Abd pain TECHNIQUE: Imaging protocol: Computed tomography of the abdomen and pelvis with contrast. Radiation optimization: All CT scans at this facility use at least one of these dose optimization techniques: automated exposure control; mA and/or kV adjustment per patient size (includes targeted exams where dose is matched to clinical indication); or iterative reconstruction. Contrast material: ISOVUE; Contrast volume: 75 ml; Contrast route: IV; COMPARISON: CT ABDOMEN PELVIS WO CON 12/01/2021 2:18 PM FINDINGS: Liver: Normal. No mass. Gallbladder and bile ducts: Cholecystectomy. Pancreas: Normal. No ductal dilation. Spleen: Multiple calcified splenic granulomata. Adrenal glands: Normal. No mass. Kidneys and ureters: Lower right renal stones measuring up to 7 mm. Stomach and bowel: Unremarkable. No obstruction. No mucosal thickening. Appendix: No evidence of appendicitis. Intraperitoneal space: Unremarkable. No free air. No significant fluid collection. Vasculature: Mild atherosclerotic changes are seen within the abdominal aorta and branch vasculature without evidence of aneurysm. Circumaortic left renal vein. Lymph nodes: Unremarkable. No enlarged lymph nodes. Urinary bladder: Unremarkable as visualized. Reproductive: Hysterectomy. Bones/joints: Unremarkable. No acute fracture. Soft tissues: Unremarkable. IMPRESSION: Nonobstructing right renal stones.
[2021-12-06 18:49] LABS: Basophils # 0.1 K/mm3 (0-0.2); Basophils % 0.9 % (0.1-2.0); Eosinophils # 0.1 K/mm3 (0.0-0.4); Eosinophils % 1.4 % (0.1-12.0); Hematocrit 42.5 % (37.0-47.0); Hemoglobin 13.3 g/dL (12.2-16.2); Lymphocytes # 1.6 K/mm3 (0.7-4.5); Lymphocytes % 20.1 % (10-50); Mean Corpuscular HGB Conc 31.4 g/dL (31.8-35.4); Mean Corpuscular Hemoglobin 33.5 pg (27.0-31.2); Mean Corpuscular Volume 106.9 fl (81-99); Mean Platelet Volume 7.1 fl (7.4-10.4); Monocytes # 0.5 K/mm3 (0.1-1.0); Monocytes % 6.4 % (1.7-9.3); Neutrophils # 5.7 K/mm3 (1.8-7.8); Neutrophils % 71.2 % (37.0-80.0); Platelet Count 364 K/mm3 (142-424); Red Blood Count 3.98 M/mm3 (4.20-5.40); Red Cell Distribution Width 14.3 % (11.5-17.5)
[2021-12-06 19:25] LABS: Microscopic, Urine URINE MICROSCOPIC (MICROSCOPIC)
[2021-12-06 19:30] LABS: Appearance,Urine CLEAR (Clear); Bilirubin,Urine Negative (Negative); Blood, Urine TRACE-L (Negative); Color,Urine YELLOW (Yellow); Glucose,Urine (UA) Negative (Negative); Ketones,Urine TRACE (Negative); Leukocyte Esterase,Urine Negative (Negative); Nitrate,Urine Negative (Negative); Protein,Urine TRACE (Negative); Urobilinogen,Urine 0.2 EU/dl (0.2)
--- NOTE | 2021-12-06 19:36 | PC.NURSE ---
Rounded on pt. Pt voiced no needs or complaints at this time.
--- NOTE | 2021-12-06 19:49 | PC.NURSE ---
PT AMBULATED TO BATHROOM AND URINE COLLECTED. EXPECTED WAIT TIMES AND PLAN OF CARE EXPLAINED TO PATIENT. NO COMPLAINTS VOICED. NO ACUTE DISTRESS NOTED.
--- NOTE | 2021-12-06 21:27 | PC.NURSE ---
Pt updated on POC. Pt advised she was in pain. RN notified.
--- NOTE | 2021-12-06 22:07 | PC.NURSE ---
PT REQUESTS ANTIBIOTIC FOR EAR INFECTION. DR. LOVELL MADE AWARE.
[2021-12-06 22:12] VITALS: BP 164/88; PULSE 87; RESP 18; TEMP 37.2; O2SAT 98
== END 2021-12-06 22:23 | disposition home or self-care (01) ==
PROVIDERS: Emergency Provider Emergency Medicine; PCP Family Medicine
DX: R10.31 Right lower quadrant pain (principal); R11.2 Nausea with vomiting, unspecified; F17.210 Nicotine dependence, cigarettes, uncomplicated; Z87.442 Personal history of urinary calculi
CPT/HCPCS: 74177; 80053; 81001; 83690; 85025; 96361; 96374; 96375; 99284; J2405

== ENCOUNTER → 2022-01-05 07:43 | Outpatient (CLI) | payer OTHER, SELFPAY ==
[2022-01-09 03:37] LABS: Pancreatic Elastase, Fecal <50 (>200)
== END ==
PROVIDERS: PCP Nurse Practitioner Family; Visit Provider Internal Medicine Gastroenterology
DX: R10.11 Right upper quadrant pain (principal); R14.0 Abdominal distension (gaseous); R14.2 Eructation; R10.13 Epigastric pain
CPT/HCPCS: 82656

== ENCOUNTER 2022-01-14 09:23 | Emergency (ER) | payer OTHER, SELFPAY ==
[2022-01-14] VITALS (8 sets, daily range): BP systolic 146–175; BP diastolic 75–102; PULSE 86–106; RESP 18–19; TEMP 36.7; O2SAT 95–98; BMI 23.3
--- NOTE | 2022-01-14 09:35 | PC.NURSE ---
JAMAAL PARSON at
--- NOTE | 2022-01-14 09:37 | CT_ITS ---
FINAL REPORT TECHNIQUE: After the administration of intravenous contrast, axial images were obtained through the abdomen and pelvis by computed tomography. The study was performed with techniques to keep radiation dose as low as reasonably achievable, (ALARA). Individual dose reduction techniques using automated exposure control or adjustment of mA and/or kV according to the patient's size were employed. CLINICAL HISTORY: abdominal pain, hx pancreatitis, nausea and vomitting COMPARISON: 12/06/2021 FINDINGS: Abdomen: The lung bases are clear. There is a 0.8 cm benign-appearing cyst in the right lobe of the liver. The gallbladder is surgically absent. There is moderate intra and extrahepatic biliary duct dilatation, stable.. The gallbladder is present. The spleen, pancreas, and adrenal appear unremarkable. There are right renal stones measuring up to 8 mm in the lower pole, similar to prior. There is a retro aortic left renal vein. The aorta is normal in caliber. There is mesenteric stranding associated with jejunal loops in the left upper quadrant. Pelvis: The appendix is normal. The uterus is not identified. The urinary bladder is unremarkable. There is no free fluid or adenopathy. IMPRESSION: Mesenteric stranding associated with jejunal loops in the left upper quadrant, new from prior. Right nephrolithiasis, stable. Benign-appearing liver cyst. Reviewed, Interpreted and Dictated by Yaya Woods MD Transcribed by Quan Camacho Authenticated and [facility]
[2022-01-14 09:46] LABS: Basophils # 0.1 K/mm3 (0-0.2); Basophils % 1.3 % (0.1-2.0); Eosinophils # 0.1 K/mm3 (0.0-0.4); Eosinophils % 1.2 % (0.1-12.0); Hematocrit 46.5 % (37.0-47.0); Hemoglobin 15.1 g/dL (12.2-16.2); Lymphocytes # 1.4 K/mm3 (0.7-4.5); Mean Corpuscular HGB Conc 32.5 g/dL (31.8-35.4); Mean Corpuscular Hemoglobin 34.2 pg (27.0-31.2); Mean Corpuscular Volume 105.3 fl (81-99); Mean Platelet Volume 7.4 fl (7.4-10.4); Monocytes # 0.5 K/mm3 (0.1-1.0); Monocytes % 5.7 % (1.7-9.3); Neutrophils # 5.8 K/mm3 (1.8-7.8); Neutrophils % 73.7 % (37.0-80.0); Platelet Count 364 K/mm3 (142-424); Red Blood Count 4.41 M/mm3 (4.20-5.40); Red Cell Distribution Width 12.8 % (11.5-17.5); White Blood Count 7.8 K/mm3 (4.8-10.8)
[2022-01-14 09:55] LABS: Chloride 97 mmol/L (98-107); Potassium 4.1 mmoL/L (3.5-5.1); Sodium 139 mmol/L (136-145)
[2022-01-14 09:58] LABS: Alanine Aminotransferase 21 U/L (12-78); Albumin Level 5.2 g/dl (3.5-5.0); Albumin/Globulin Ratio 1.6 (1.1-1.8); Alkaline Phosphatase 134 U/L (38-126); Anion Gap 15.1 mEq/L (5-15); Aspartate Amino Transferase 34 U/L (14-36); Bilirubin,Total 0.3 mg/dl (0.2-1.3); Blood Urea Nitrogen 14 mg/dl (7-17); Calcium 9.8 mg/dl (8.4-10.2); Carbon Dioxide 31 mmol/L (22.0-30.0); Estimated Glomerular Filt Rate 164 ml/min (>60); GFR (African American) 198 ML/MIN (>60); Globulin 3.2 g/dL (1.3-3.2); Glucose 110 mg/dl (74-100); Lipase 91 U/L (23-300); Total Protein,Serum 8.4 g/dl (6.3-8.2)
[2022-01-14 09:59] LABS: Magnesium 1.8 mg/dl (1.6-2.3)
--- NOTE | 2022-01-14 10:03 | PC.NURSE ---
notified rad of CT order, spoke with rudy
--- NOTE | 2022-01-14 10:05 | HMH.ITSTN ---
Waiting on labs before CT with contrast exam.
[2022-01-14 10:06] LABS: Creatinine Clearance Estimated 154 mL/min (50-200)
--- NOTE | 2022-01-14 10:10 | HMH.EDGENADL ---
Discharge Plan Disposition Patient Disposition: Home, Self-Care Prescriptions Prescriptions: New ondansetron 4 mg Tablet,Disintegrating 4 mg PO Q8H PRN (Reason: Nausea) Qty: 15 0RF oxycodone 5 mg capsule 5 mg PO Q8H PRN (Reason: pain) 3 Days Qty: 9 0RF No Action lisinopril-hydrochlorothiazide 20-25 mg tablet 1 tab PO metoprolol tartrate 100 mg tablet 100 mg PO trazodone 50 mg tablet 50 mg PO HS PRN cephalexin 500 MG capsule 500 mg PO TID Qty: 30 0RF omeprazole 40 MG capsule,delayed release(DR/EC) 40 mg PO DAILY Label Comments: Referrals Follow up/Referrals: Jeffrey Aguilera MD [Primary Care Provider] - See instructions Activity Restrictions/Add. Instructions Additional Instructions/Restrictions: Follow-up with your primary care physician within the next few days. Follow-up with gastroenterology within the next week. Return the emergency room for worsening abdominal pain nausea vomiting or any other concerns within next 24 hours. Instructions Patient Instructions: DI for Acute Abdominal Pain Discharge ED Provider: Mason Peacock General Adult HPI General Chief complaint: Abdominal Pain Stated complaint: post op 01/12, possible dehydrated, vomiting Time Seen by Provider: 01/14/22 09:25 Mode of Arrival: Wheelchair Source of Information: Patient Limitations: No Limitations Description of Symptoms (Recalled from ER Triage Doc. by RN): Pt reports vomitting x2 episodes since yesterday. Pt reports having kyra leg and feet spasms and RUQ pain. Pt reports had a colonoscopy on Wednesday of this week by Dr. Casarez. Pt reports called dr. casarez this morning who directed her to come to the ER. History of Present Illness HPI narrative: 56-year-old female history of pancreatitis presents with epigastric abdominal pain and vomiting. This has been going on for 2 days and she has been having spasms in her legs 2. She feels pain in the right upper quadrant radiation as well. Pain is constant dull. No vomiting blood no diarrhea. No fever no chills. She had recent colonoscopy on Wednesday was instructed by her editorial cartoonist to return to the emergency department. Related Data Home Medications Medication Instructions Recorded Confirmed omeprazole 40 mg capsule,delayed 40 mg PO DAILY ulcer 06/18/17 12/02/21 release lisinopril 20 1 tab PO 09/18/20 12/02/21 mg-hydrochlorothiazide 25 mg tablet metoprolol tartrate 100 mg tablet 100 mg PO 09/18/20 12/02/21 trazodone 50 mg tablet 50 mg PO HS PRN 12/02/21 12/02/21 Previous Rx's Medication Instructions Recorded cephalexin 500 mg capsule 500 mg PO TID #30 caps 12/06/21 ondansetron 4 mg disintegrating 4 mg PO Q8H PRN Nausea #15 tabs 01/14/22 tablet oxycodone 5 mg capsule 5 mg PO Q8H PRN pain 3 days #9 caps 01/14/22 Allergies Allergy/AdvReac Type Severity Reaction Status Date / Time No Known Allergies Allergy Verified 12/02/21 09:37 PFSH PFSH Social History Smoking Status: Never smoker second hand exposure: No alcohol intake: never substance use type: denies use current occupational status: other Travel in the last 8 weeks: None household members: spouse housing: house current occupation: HOUSE current occupational exposures/hazards: No caffeine: Yes ROS Obtained: Yes All systems reviewed & no additional complaints except as documented Physical Exam General General appearance: alert and in no apparent distress Eye Eye exam: Present PERRL and EOMI ENT ENT exam: Present normal exam and normal oropharynx Neck Neck exam: Present normal inspection Chest Chest inspection: Present symmetric chest wall rise Respiratory Respiratory exam: Present normal lung sounds bilaterally; Absent respiratory distress Cardiovascular Cardiovascular exam: Present regular rate and normal rhythm Abdominal Exam Abdominal exam: Present soft and tenderness (Mild tenderness and right upper quadrant and
--- NOTE | 2022-01-14 10:30 | PC.NURSE ---
per rad staff pt vomitting after CT scan
--- NOTE | 2022-01-14 10:30 | PC.NURSE ---
JAMAAL PARSON at
--- NOTE | 2022-01-14 11:55 | PC.NURSE ---
contacted rad to check on status of CT reading, states there is a preliminary report and will fax it down to us.
== END 2022-01-14 12:51 | disposition home or self-care (01) ==
PROVIDERS: Emergency Provider Emergency Medicine; PCP Family Medicine
DX: R10.11 Right upper quadrant pain (principal); R11.10 Vomiting, unspecified; M62.838 Other muscle spasm
CPT/HCPCS: 74177; 80053; 83690; 83735; 85025; 96374; 96375; 96376; 99284; J2405; Q9967

== ENCOUNTER → 2022-06-17 07:51 | Outpatient (CLI) | payer OTHER, SELFPAY | PROVIDERS: PCP Nurse Practitioner Family; Visit Provider Nurse Practitioner Family | DX: R06.83 Snoring (principal); G47.30 Sleep apnea, unspecified | CPT/HCPCS: G0399 ==

== ENCOUNTER → 2022-06-18 11:13 | Outpatient (CLI) | payer OTHER, SELFPAY ==
[2022-06-18 11:54] LABS: Basophils # 0.1 K/mm3 (0-0.2); Basophils % 1.4 % (0.1-2.0); Eosinophils # 0.1 K/mm3 (0.0-0.4); Eosinophils % 1.6 % (0.1-12.0); Hematocrit 44.2 % (37.0-47.0); Hemoglobin 13.8 g/dL (12.2-16.2); Lymphocytes # 1.9 K/mm3 (0.7-4.5); Lymphocytes % 33.4 % (10-50); Mean Corpuscular HGB Conc 31.2 g/dL (31.8-35.4); Mean Corpuscular Hemoglobin 29.5 pg (27.0-31.2); Mean Corpuscular Volume 94.8 fl (81-99); Mean Platelet Volume 7.3 fl (7.4-10.4); Monocytes # 0.3 K/mm3 (0.1-1.0); Monocytes % 5.9 % (1.7-9.3); Neutrophils # 3.2 K/mm3 (1.8-7.8); Neutrophils % 57.7 % (37.0-80.0); Platelet Count 305 K/mm3 (142-424); Red Blood Count 4.66 M/mm3 (4.20-5.40); Red Cell Distribution Width 12.7 % (11.5-17.5); White Blood Count 5.6 K/mm3 (4.8-10.8)
[2022-06-18 12:08] LABS: Alanine Aminotransferase 16 U/L (12-78); Albumin Level 5.1 g/dl (3.5-5.0); Alkaline Phosphatase 134 U/L (38-126); Anion Gap 6.6 mEq/L (5-15); Aspartate Amino Transferase 22 U/L (14-36); Bilirubin,Direct 0.4 mg/dl (0.0-0.4); Bilirubin,Total 0.4 mg/dl (0.2-1.3); Bilirubin,Unconjugated 0.1 mg/dL (0.0-1.1); Blood Urea Nitrogen 20 mg/dl (7-17); Calcium 9.7 mg/dl (8.4-10.2); Carbon Dioxide 33 mmol/L (22.0-30.0); Chloride 102 mmol/L (98-107); Chol/HDL Ratio 4.4 (1-3.5); Cholesterol 212 mg/dl (140-200); Estimated Glomerular Filt Rate 102 ml/min (>60); GFR (African American) 124 ML/MIN (>60); Glucose 96 mg/dl (74-100); HDL Cholesterol 48 mg/dl (40-60); Potassium 3.6 mmoL/L (3.5-5.1); Sodium 138 mmol/L (136-145); Total Protein,Serum 7.8 g/dl (6.3-8.2); Triglycerides 206 mg/dl (30-150); VLDL Cholesterol 41 mg/dL (0-40)
[2022-06-18 12:20] LABS: Direct LDL Cholesterol 105.48 mg/dL (100-129)
[2022-06-18 12:25] LABS: Free T4 (Free Thyroxine) 0.69 ng/dl (0.78-2.19)
[2022-06-18 12:39] LABS: Thyroid Stimulating Hormone 4.64 uIU/mL (0.465-4.68)
== END ==
PROVIDERS: PCP Nurse Practitioner Family; Visit Provider Nurse Practitioner
DX: I63.89 Other cerebral infarction (principal); R06.09 Other forms of dyspnea; R07.89 Other chest pain; J43.9 Emphysema, unspecified; I11.9 Hypertensive heart disease without heart failure; E11.9 Type 2 diabetes mellitus without complications; Z72.0 Tobacco use; Z82.49 Family history of ischemic heart disease and other diseases of the circulatory system
CPT/HCPCS: 36415; 80048; 80061; 80076; 84439; 84443; 85025

== ENCOUNTER → 2022-07-03 07:07 | Outpatient (CLI) | payer OTHER, SELFPAY ==
--- NOTE | 2022-07-03 07:11 | NM_ITS ---
APPROVED REPORT Exam: Nuclear Stress Test Indication: HTN, TOB USE, FM HX, C.P., SOB, PALPITATIONS, FATIGUE Patient Location: Outpatient Stress Tech: Julia Gaspar NM Tech:HAILEY Nixon RT (R)(N)(M) Ht: 5 ft 3 in Wt: 140 lbs Bra Size: 36C HR: 98 bpm BP: 157/84 mmHg BSA: 1.66 m2 TID: 1.23 BMI: 24.7 History: HTN, TOB USE, FM HX, C.P., SOB, PALPITATIONS, FATIGUE Procedure: Patient received 0.4 mg of intravenous Lexiscan, resting heart rate 98 bpm, resting blood pressure 157/84 mmHg, with Lexiscan maximum heart rate achieved was 128 bpm which is Less than 85 % of the maximum predicted heart rate and blood pressure was 159/89 mmHg. With Lexiscan, patient denied any complaint of chest pain. C/O SOB WITH LEXISCAN Electrocardiogram Resting electrocardiogram shows sinus rhythm nonspecific ST-T changes, with Lexiscan there is less than 1.[address] segment depression noted from the baseline EKG. The EKG portion of the Lexiscan is nondiagnostic. Cardiac Stress and Resting SPECT Images: Cardiac Stress and Resting SPECT images were obtained using technetium 99m Myoview 29.6 mCi stress and 10.85 mCi at rest. Gated SPECT analysis of segmental wall motion and calculation of the ejection fraction also done. Prone images were also obtained. Cardiac prone images show uniform myocardial activity without segmental perfusion abnormality, computer derived ejection fraction is 29%, left ventricle is dilated and globally hypokinetic, right ventricle is normal size and contractility. Conclusion: 1. The EKG portion of the Lexiscan is nondiagnostic. 2. No scintigraphic evidence of reversible ischemia seen, computer derived ejection fraction is 29%, left ventricle is dilated and globally hypokinetic. Right ventricle is normal size and contractility. 3. Abnormal Lexiscan Myoview study due to low ejection fraction. Electronically signed by : Dallas Bustillo MD 07/03/2022 13:56:50
--- NOTE | 2022-07-03 07:12 | CA_ITS ---
APPROVED REPORT EXAM: Comprehensive 2D, Doppler, and color-flow Echocardiogram Ceo Na: Susie Bautista CRT Ht: 5 ft 5 in Wt: 144lbs BSA: 1.72 BP: 138/74 mmHg Indications: Chest Pain, COPD, hx cva, smoker 2D Dimensions LVOT 2.00 cm (M/F) 1.5-2.5 LA Volume 52.10 mL LA Volume Index 29.60 mL/m2 (M/F) 16-34 M-Mode Dimensions RVDd 2.82 cm (0.9-2.6) LA Diam 3.98 cm (1.9-4.0) LVDd 4.60 cm (3.5-5.7) Ao Diam 3.69 cm (2.0-3.7) LVDs 3.96 cm (3.5-5.7) IVSd 1.43 cm (0.6-1.1) PWd 0.71 cm (0.6-1.1) EF (Teich) 29.80% FS 13.90% EDV (Teich) 97.30 mL TAPSE 2.44 (<1.7) ESV (Teich) 68.30 mL LV Diastology LAT E' 12.60 (<10 cm/sec) LAT A' 6.00 cm/s Aortic Valve AI PHT 390.00 ms AO Peak GR. 4.50 mmHg Pulmonary Valve PV Peak Velocity 89.00 (50-150 cm/s) Tricuspid Valve TR P. Velocity 330.00 cm/s Left Ventricle Left atrium is mildly enlarged and left ventricle is normal size mild concentric left ventricular hypertrophy, estimated ejection fraction approximately 40 to 45%, left ventricle is globally hypokinetic, diastolic parameters are inconclusive. Right Ventricle Right atrium and right ventricle are normal size and contractility. Aortic Valve Aortic valve is minimally thickened and fibrosed there is no aortic stenosis, there is mild aortic insufficiency. Mitral Valve Mitral valve is grossly normal, there is mild mitral regurgitation. Tricuspid Valve Tricuspid grossly normal, there is mild tricuspid regurgitation, calculated right ventricular systolic pressure is 42 mmHg. Pulmonic Valve Pulmonic valve is poorly visualized. Great Vessels Aortic root is normal size. Inferior vena cava normal 7 normal inspiratory collapse. Pericardium No significant pericardial effusion noted. Conclusion 1. Mildly enlarged left atrium, normal left ventricular size, estimated ejection fraction 40 to 45%, left ventricle is globally hypokinetic, diastolic parameters are inconclusive. 2. Mild aortic, mitral and tricuspid regurgitation, calculated right ventricular systolic pressure is 42 mmHg. 3. No significant pericardial effusion noted. 4. Inferior vena cava is normal size with normal inspiratory collapse. Electronically signed by : Dallas Bustillo MD 07/03/2022 13:07:59
== END ==
PROVIDERS: PCP Nurse Practitioner Family; Visit Provider Nurse Practitioner
DX: R06.09 Other forms of dyspnea (principal); R07.89 Other chest pain; I63.89 Other cerebral infarction; J43.9 Emphysema, unspecified; Z72.0 Tobacco use; Z82.49 Family history of ischemic heart disease and other diseases of the circulatory system
CPT/HCPCS: 78452; 93017; 93306; A9502; J2785

== ENCOUNTER → 2022-07-08 09:17 | Outpatient (CLI) | payer OTHER, SELFPAY | PROVIDERS: PCP Nurse Practitioner Family; Visit Provider Nurse Practitioner | DX: R06.09 Other forms of dyspnea (principal); R07.9 Chest pain, unspecified; R00.0 Tachycardia, unspecified; I20.9 Angina pectoris, unspecified; I63.89 Other cerebral infarction; J43.9 Emphysema, unspecified; R94.30 Abnormal result of cardiovascular function study, unspecified; Z72.0 Tobacco use; Z82.49 Family history of ischemic heart disease and other diseases of the circulatory system | CPT/HCPCS: 93270 ==

== ENCOUNTER 2022-07-13 08:07 | Day surgery (SDC) | payer OTHER, SELFPAY ==
[2022-07-13] VITALS (15 sets, daily range): BP systolic 140–195; BP diastolic 77–111; PULSE 83–106; RESP 18–20; TEMP 36.9; O2SAT 96–100; BMI 23.9
--- NOTE | 2022-07-13 08:15 | IR_ITS ---
APPROVED REPORT Patient Location: Outpatient Social Service Manager: HAILEY Mason RT (R) PROCEDURES Left heart catheterization Left ventriculogram Selective coronary angiogram Drug-eluting stent deployment to the proximal ramus intermedius Drug-eluting stent deployment to the proximal and mid large circumflex artery INDICATION Ischemic cardiomyopathy ejection fraction 29%, Coronary artery disease Informed consent was obtained prior to the procedure. COMPLICATIONS None Estimated Blood Loss: Less than 10 mls TECHNIQUE One percent lidocaine used to anesthetize the right anterior aspect of the wrist. The right radial artery was accessed via the Seldinger technique. A 6 Kyrgyz sheath was placed in the right radial artery. 150 mg magnesium sulfate, 800 mcg of nitroglycerin, 1mg Lidocaine and 5000 U Heparin were given through the arterial sheath. The papa catheter was also used to perform left heart catheterization, left ventriculogram and selective coronary angiogram. At the end the diagnostic angiogram therapeutic heparin was administered giving a therapeutic ACT and a guide catheter was placed in left main artery followed by Choice PT extra-support wire being placed down the ramus intermedius/first diagonal artery. A 2.75 x 15 mm resolute Earl stent was deployed at 16 aletha reducing the stenosis. There is an additional lesion proximally therefore 2.75 x 12 mm resolute Earl stent was placed proximal to the first stent yet still overlapping and deployed at 20 aletha. The balloon was then advanced and deployed at 22 aletha to post dilate mesh the 2 stents and reduce in a concentric calcified stenosis. OLIVA-3 flow was present before and after the procedure. At the end of this procedure the apparatus was removed and I did gowned and left the procedure Workers Compensation Adjuster. I then reviewed the angiogram and identified a severe stenosis in the proximal circumflex artery with an additional moderate to severe lesion in the midportion. Because of this I then reentered the Workers Compensation Adjuster rescrubbed and sterilely prepped and then placed the Poppa catheter back in the left main artery followed by Choice PT extra-support wire down the circumflex artery. A 3 mm x 34 mm resolute [place] stent was deployed at 20 aletha reducing the stenosis. An additional 3.5 x 12 mm noncompliant balloon was deployed at 24 aletha in the midportion of the circumflex artery and then brought back to the ostial segment. This same balloon was then deployed at 28 aletha to further post dilate the proximal calcified concentric stenosis. OLIVA-3 flow was present before and after the procedure. After achieving excellent angiograph results the apparatus was removed the sheath was removed good hemostasis was achieved using TR banding patient was transferred to the postop holding in stable condition ANGIOGRAPHIC RESULTS The left main artery Normal The left anterior descending artery Has proximal 10 to 20% stenoses with a mid vessel 20% stenosis. There was a high first diagonal artery or large ramus intermedius which has a proximal 50% followed by concentric 70 to 80% stenosis. This ramus/first diagonal artery is larger in size than the LAD itself. The circumflex artery Is a nondominant yet still large vessel which has a concentric proximal 80% stenosis followed by mid vessel eccentric 50% stenosis The right coronary artery There is a codominant vessel and has proximal 20% stenoses with a 30 to 40% stenosis in the proximal posterior descending artery The FAULKNER ventriculogram reveals Dilated with an ejection fraction of 30% The left ventricular end-diastolic pressure Severely elevated at 40 mmHg IMPRESSION Severe two-vessel coronary disease as described above Successf
[2022-07-13 08:52] LABS: Basophils # 0.1 K/mm3 (0-0.2); Basophils % 1.2 % (0.1-2.0); Eosinophils # 0.1 K/mm3 (0.0-0.4); Eosinophils % 2.2 % (0.1-12.0); Hematocrit 39.5 % (37.0-47.0); Lymphocytes # 1.6 K/mm3 (0.7-4.5); Lymphocytes % 29.8 % (10-50); Mean Corpuscular HGB Conc 32.9 g/dL (31.8-35.4); Mean Corpuscular Hemoglobin 30.6 pg (27.0-31.2); Mean Corpuscular Volume 93.2 fl (81-99); Mean Platelet Volume 8.4 fl (7.4-10.4); Monocytes # 0.4 K/mm3 (0.1-1.0); Monocytes % 8.1 % (1.7-9.3); Neutrophils # 3.2 K/mm3 (1.8-7.8); Neutrophils % 58.8 % (37.0-80.0); Platelet Count 298 K/mm3 (142-424); Red Blood Count 4.24 M/mm3 (4.20-5.40); Red Cell Distribution Width 12.8 % (11.5-17.5); White Blood Count 5.4 K/mm3 (4.8-10.8)
[2022-07-13 08:55] LABS: Chloride 102 mmol/L (98-107); Potassium 4.1 mmoL/L (3.5-5.1); Sodium 140 mmol/L (136-145)
[2022-07-13 08:58] LABS: Blood Urea Nitrogen 16 mg/dl (7-17); Creatinine Clearance Estimated 125 mL/min (50-200); Estimated Glomerular Filt Rate 126 ml/min (>60); GFR (African American) 153 ML/MIN (>60)
[2022-07-13 08:59] LABS: Anion Gap 12.1 mEq/L (5-15); Calcium 9.2 mg/dl (8.4-10.2); Carbon Dioxide 30 mmol/L (22.0-30.0); Glucose 85 mg/dl (74-100)
[2022-07-13 12:49] LABS: CATHL Activated Clotting Time 356 SEC (74-125)
--- NOTE | 2022-07-13 13:30 | P.CONPHA_ITS ---
PHA Solder Sprayer Discharge Med Necktie Operator Pockets And Pieces: Roberto Monroe has received discharge medication counseling on the following medications: aspirin 81 mg daily atorvastatin 40 mg hs carvedilol 25 mg bid lisinopril hydrochlorothiazide 20 mg/12.5 mg-2 tablets daily Brilinta 90 mg bid spironolactone 100 mg daily
== END 2022-07-13 15:10 | disposition home or self-care (01) ==
LOC: CATHLAB 08:08
PROVIDERS: PCP Nurse Practitioner Family; Visit Provider Internal Medicine
DX: I25.5 Ischemic cardiomyopathy (principal); I25.118 Atherosclerotic heart disease of native coronary artery with other forms of angina pectoris; I11.0 Hypertensive heart disease with heart failure; Z79.899 Other long term (current) drug therapy; Z82.49 Family history of ischemic heart disease and other diseases of the circulatory system; I50.20 Unspecified systolic (congestive) heart failure
CPT/HCPCS: 80048; 85025; 85347; 92928; 93458; 99152; 99153; C1725; C1769; C1876; C9600; J1644; Q9967

== ENCOUNTER → 2022-11-12 09:05 | Outpatient (CLI) | payer OTHER, SELFPAY | PROVIDERS: PCP Nurse Practitioner Family; Visit Provider Internal Medicine | DX: I50.20 Unspecified systolic (congestive) heart failure (principal) | CPT/HCPCS: 93306 ==

== ENCOUNTER → 2023-03-03 08:16 | Outpatient (CLI) | payer OTHER, SELFPAY ==
--- NOTE | 2023-03-03 08:24 | MM_ITS ---
PROCEDURE INFORMATION: Exam: MG Bilateral Screening 3D Mammography Exam date and time: 03/03/2023 8:33 AM Age: 57 years old Clinical indication: Screening examination TECHNIQUE: Imaging protocol: Bilateral Screening tomosynthesis and 2D mammography including computer-aided detection (CAD) when performed. COMPARISON: 1. MG MM DIG SCREENING MAMM BI W/CAD 08/15/2021 7:54 AM 2. MG DMSB DIG MAMM-SCREEN DANA W/CAD 10/12/2016 8:37 AM FINDINGS: MAMMOGRAPHY: Breast composition: The breasts are heterogeneously dense, which may obscure small masses. Mass: None. Architectural distortion: None. Calcifications: No suspicious calcifications. Asymmetric density: None. Skin thickening: None. Axillary adenopathy: None. IMPRESSION: No mammographic evidence of malignancy. Annual screening is recommended unless otherwise clinically indicated. ASSESSMENT: BI-RADS Category 1: Negative
== END ==
PROVIDERS: PCP Nurse Practitioner Family; Visit Provider Nurse Practitioner Family
DX: Z12.31 Encounter for screening mammogram for malignant neoplasm of breast (principal)
CPT/HCPCS: 77063; 77067

== ENCOUNTER → 2023-03-05 10:58 | Outpatient (CLI) | payer OTHER, SELFPAY ==
--- NOTE | 2023-03-05 11:02 | US_ITS ---
FINAL REPORT CLINICAL HISTORY: PAIN BILATERAL THIGHS, NUMBNESS TOES,CAD,HTN,HLD,SMOKER,HX CVA COMPARISON: None FINDINGS: ANKLE-BRACHIAL PRESSURE INDICES Pressure indices are as follows: RIGHT LOWER EXTREMITY: Ankle-brachial pressure index: 1.0 Comments: Normal LEFT LOWER EXTREMITY: Ankle-brachial pressure index: 1.0 Comments: Normal IMPRESSION: No evidence of significant obstructive peripheral vascular disease of the lower extremities Reviewed, Interpreted and Dictated by Agnieszka Bolivar MD Transcribed by Aliza Barrios Authenticated and . [facility]
== END ==
PROVIDERS: PCP Emergency Medicine; Visit Provider Internal Medicine
DX: R20.0 Anesthesia of skin (principal); I25.10 Atherosclerotic heart disease of native coronary artery without angina pectoris; Z82.49 Family history of ischemic heart disease and other diseases of the circulatory system; Z95.5 Presence of coronary angioplasty implant and graft
CPT/HCPCS: 93923

== ENCOUNTER → 2023-03-30 11:22 | Outpatient (CLI) | payer OTHER, SELFPAY | PROVIDERS: PCP Family Medicine; Visit Provider Internal Medicine | DX: R00.0 Tachycardia, unspecified (principal); R00.2 Palpitations | CPT/HCPCS: 93270 ==

== ENCOUNTER 2023-07-13 07:14 | Outpatient (CLI) | payer OTHER, SELFPAY ==
[2023-07-13 07:25] LABS: Adenovirus F 40/41, stool Not Detected (NotDetected); Astrovirus Not Detected (NotDetected); Campylobacter Not Detected (NotDetected); Clostridium Difficile A/B, PCR Not Detected (NotDetected); Cryptosporidium Not Detected (NotDetected); Cyclospora Cayetanesis Not Detected (NotDetected); Entamoeba histolytica Not Detected (NotDetected); Enteroaggregative E coli Not Detected (NotDetected); Enteropathogenic E coli Not Detected (NotDetected); Enterotoxigenic E coli Not Detected (NotDetected); Giardia lamblia Not Detected (NotDetected); Norovirus Not Detected (NotDetected); Plesimonas Shigalloides, PCR Not Detected (NotDetected); Rotavirus A Not Detected (NotDetected); Salmonella, PCR Not Detected (NotDetected); Sapovirus Not Detected (NotDetected); Shiga-like toxin E coli Not Detected (NotDetected); Shigella Enterovasive E coli Not Detected (NotDetected); Vibrio Cholerae Not Detected (NotDetected); Vibrio, PCR Not Detected (NotDetected); Yersinia Entercolitica, PCR Not Detected (NotDetected)
== END 2023-07-13 23:59 ==
LOC: LAB.DROPOF 07:15
PROVIDERS: Nurse Practitioner Family; PCP Family Medicine; Visit Provider Internal Medicine Gastroenterology
DX: R19.4 Change in bowel habit (principal); R15.2 Fecal urgency; R19.7 Diarrhea, unspecified; R10.11 Right upper quadrant pain; R14.2 Eructation; K21.9 Gastro-esophageal reflux disease without esophagitis; R14.0 Abdominal distension (gaseous); K86.81 Exocrine pancreatic insufficiency
CPT/HCPCS: 87507

== ENCOUNTER 2023-07-21 11:28 | Outpatient (CLI) | payer OTHER, SELFPAY ==
--- NOTE | 2023-07-21 11:29 | NM_ITS ---
APPROVED REPORT Exam: Nuclear Stress Test Indication: chest pain..soa..palpitations..fatigue Patient Location: Outpatient Stress Tech: Kiana Iqbal [place] Tech:HAILEY Garcias RT(R)(N) Ht: 5 ft 5 in Wt: 140 lbs Bra Size: 36c HR: 80 bpm BP: 135/52 mmHg BSA: 1.70 m2 Rhythm: NSR TID: 0.90 BMI: 23.2 History: chest pain..soa..palpitations..fatigue Procedure: Patient received 0.4 mg of intravenous Lexiscan, resting heart rate 80 bpm, resting blood pressure 135/52 mmHg, with Lexiscan maximum heart rate achieved was 116 bpm which is 85 % of the maximum predicted heart rate and blood pressure was 143/75 mmHg. With Lexiscan, patient denied any complaint of chest pain. Cardiac Stress and Resting SPECT Images: Cardiac Stress and Resting SPECT images were obtained using technetium 99m Myoview 32.5 mCi stress and 10.67 mCi at rest. Resting and stress imaging in supine and prone positions demonstrate no evidence of fixed or reversible perfusion defects. Gated imaging demonstrates normal global and regional LV systolic function. LVEF is calculated at 59%. Conclusion: No evidence of fixed or reversible perfusion defects. Gated imaging demonstrates normal global and regional LV systolic function. LVEF is calculated at 59%. Electronically signed by : Nicole Christopher MD 07/22/2023 12:16:59
[2023-07-21] MEDS: SODIUM CHLORIDE 0.9% 10ML SYR (RAD ONLY) 10 ML IV ×2 (13:29)
[2023-07-21] MEDS: ISOTOPE MYOVIEW (PER STUDY) 1 DOSE IV (13:29)
[2023-07-21] MEDS: REGADENOSON 0.4MG/5ML SYRINGE 0.400000000000000022 MG IV (13:29)
--- NOTE | 2023-07-21 13:40 | CA_ITS ---
APPROVED REPORT EXAM: Comprehensive 2D, Doppler, and color-flow Echocardiogram [employer] Developer: Ana Gamble RT(R) Ht: 5 ft 5 in Wt: 140lbs BSA: 1.70 BP: 124/74 mmHg Indications: CP, COPD, smoker, fatigue, HTN, SOB, MEJÍA, cardiac stents, CAD, hx CVA 2D Dimensions LVEF (Hopkins's) 49.20 % F: 54 - 74 LV Volume 78.80 mL F: 46 - 106 LV Volume Index 46.4 mL/m2 F: 29 - 61 LA Volume 19.30 mL LA Volume Index 11.35 mL/m2 (M/F) 16-34 EF AP4 50.40 % EF AP2 45.3 % EF BP 49.2 % GL Strain -14.4 % M-Mode Dimensions RVDd 2.35 cm (0.9-2.6) LA Diam 2.59 cm (1.9-4.0) LVDd 3.30 cm (3.5-5.7) LVDs 2.39 cm (3.5-5.7) IVSd 0.91 cm (0.6-1.1) PWd 0.91 cm (0.6-1.1) EF (Teich) 54.60% FS 27.60% EDV (Teich) 44.10 mL ESV (Teich) 20.00 mL LV Diastology E Decel Time 297 (160-240 msec) E/A Ratio 0.8 Aortic Valve AI PHT 661.00 ms Mitral Valve MV E Max Ramirez. 77.0 (40-130 cm/s) MV A Velocity 93.0 (40-130 cm/s) E/A Ratio 0.83 MV PHT 87.0 ms Tricuspid Valve TR P. Velocity 279.00 cm/s RAP Estimate 10.00 mmHg RVSP 41.10 mmHg Left Ventricle The left ventricle is normal size. The left ventricular systolic function is normal. The left ventricular ejection fraction is within the normal range. There is increased LV wall thickness. There is normal LV segmental wall motion. Transmitral Doppler flow pattern suggests impaired LV relaxation. LVEF is 60%. Right Ventricle The right ventricle is normal size. The right ventricular systolic function is normal. Atria The left atrium size is normal. The right atrium size is normal. There is no Doppler evidence of interatrial shunt. Aortic Valve The aortic valve is mildly thickened. Mild aortic regurgitation. There is no aortic valvular stenosis. Mitral Valve The mitral valve leaflets are mildly thickened. No evidence of mitral valve stenosis. Trace mitral regurgitation. Tricuspid Valve The tricuspid valve leaflets are thin and pliable. Mild tricuspid regurgitation. RVSP is 30-35 mmHg. Pulmonic Valve The pulmonary valve is normal in structure. Great Vessels The aortic root is normal in size. The ascending aorta is not well-visualized. IVC is normal in size and collapses >50% with inspiration. Pericardium There is no pericardial effusion. Other Information Study Quality: Technically Difficult Conclusion Technically difficult study due to poor acoustic windows. Normal biventricular systolic function. Mild AI, mild TR. RVSP 30-35 mmHg. Electronically signed by : Nicole Christopher MD 07/25/2023 23:05:56
--- NOTE | 2023-07-21 13:47 | CA_ITS ---
APPROVED REPORT Exam: Pharmacologic Technologist: Kiana Iqbal Ht: 5 ft 5 in Wt: 138 lbs BSA: 1.69 m2 HR: 75 bpm BP: 135/52 mmHg Rhythm: NSR Indications: R07.9, Chest pain, CAD Medical History Medications: Aspirin,,,,, Atorvastatin,,,,, Carvedilol,,,,, Carafate,,,,, Lasix,,,,, Farxiga,,,,, Protonix,,,,, CloPIdogrel,,,,, SpirOnolactone,,,,, Trazodone,,,,, Creon,,,,, Enestro,,,,, Stress Test Details Test: LEXISCAN HR Resting HR: 80 bpm Max Heart Rate (APMHR): 160 bpm Max HR Achieved: 116 bpm Target HR (85% APMHR): 136 bpm % of APMHR: 73 Recovery HR: 90 bpm BP Resting BP: 135.0/52.0 mmHg Max BP: 143.0/75.0 mmHg Recovery BP: 139.0/61.0 mmHg ECG Resting ECG: Normal sinus rhythm, NS ST abnormalities Stress ECG: Inferior and anterolateral T wave inversions, with 0.5-[address] depression. Arrhythmia: Occasional PVCs Clinical Exercise duration: 04:03 min Highest Stage Achieved: Exercise capacity: 1.0 METs Stress ECG Conclusion Symptoms: Shortness of air, chest tightness, headache Arrhythmias/Ectopy: occasional PVC ST-T Changes: Inferior and anterolateral T wave inversions, with 0.5-[address] depression. Conclusion: EKG changes suggestive of ischemia with Lexiscan. Myoview images reported separately. Test Summary REST . . . . . . . Resting REST 04:41 . . 80 . 135/ 52 . . Stage 1 01:00 . . 114 . . . . Stage 2 01:00 . . 113 . . . . Stage 3 01:00 . . 108 . 133/ 73 . . Stage 4 01:00 . . 105 . . . . Stage 4 01:03 . . 104 . . . Stop exercise at 04:03 RECOVERY 01:00 . . 97 . . . . RECOVERY 02:00 . . 102 . . . . RECOVERY 03:00 . . 98 . 112/ 70 . . RECOVERY 04:00 . . 94 . 139/ 61 . . RECOVERY 05:00 . . 90 . 139/ 61 . . RECOVERY 05:18 . . 95 . 139/ 61 . . Electronically signed by : Nicole Christopher MD 07/22/2023 12:15:55
== END 2023-07-21 23:59 ==
LOC: RAD 11:29
PROVIDERS: PCP Family Medicine; Visit Provider Nurse Practitioner
DX: R07.9 Chest pain, unspecified (principal); R00.2 Palpitations; R00.0 Tachycardia, unspecified; I25.10 Atherosclerotic heart disease of native coronary artery without angina pectoris; I50.20 Unspecified systolic (congestive) heart failure; I10 Essential (primary) hypertension; I63.89 Other cerebral infarction; J43.9 Emphysema, unspecified; Z82.49 Family history of ischemic heart disease and other diseases of the circulatory system; Z95.5 Presence of coronary angioplasty implant and graft; Z72.0 Tobacco use
CPT/HCPCS: 78452; 93017; 93018; 93306; A9502; J2785

== ENCOUNTER 2024-05-09 08:35 | Outpatient (CLI) | payer OTHER, SELFPAY ==
--- NOTE | 2024-05-09 08:40 | XR_ITS ---
FINAL REPORT CLINICAL HISTORY: COVID-19..cough..sob COMPARISON: 01/18/2020 FINDINGS: No acute pulmonary density is evident. There is no evidence of effusion or other pleural disease. The mediastinum has a normal appearance. The cardiac silhouette is unremarkable. IMPRESSION: Unremarkable chest exam. Reviewed, Interpreted and Dictated by Akua Hugo MD Transcribed by Marti Chin Authenticated and [facility]
== END 2024-05-09 23:59 | disposition home or self-care (01) ==
LOC: RAD 08:37
PROVIDERS: PCP Family Medicine; Visit Provider Family Medicine
DX: U07.1 COVID-19 (principal)
CPT/HCPCS: 71046

== ENCOUNTER 2024-07-26 14:32 | Outpatient (CLI) | payer OTHER, SELFPAY ==
[2024-07-26 15:14] LABS: Basophils % 0.5 % (0.1-2.0); Eosinophils # 0.2 K/mm3 (0.0-0.4); Eosinophils % 2.3 % (0.1-12.0); Hematocrit 37.7 % (37.0-47.0); Hemoglobin 12.7 g/dL (12.2-16.2); Lymphocytes # 1.8 K/mm3 (0.7-4.5); Lymphocytes % 27.5 % (10-50); Mean Corpuscular HGB Conc 33.7 g/dL (31.8-35.4); Mean Corpuscular Hemoglobin 30.5 pg (27.0-31.2); Mean Corpuscular Volume 90.4 fl (81-99); Monocytes # 0.6 K/mm3 (0.1-1.0); Monocytes % 9.5 % (1.7-9.3); Neutrophils % 59.9 % (37.0-80.0); Platelet Count 266 K/mm3 (142-424); Red Blood Count 4.17 M/mm3 (4.20-5.40); Red Cell Distribution Width 11.9 % (11.5-17.5); White Blood Count 6.7 K/mm3 (4.8-10.8)
[2024-07-26 15:30] LABS: Alanine Aminotransferase 17 U/L (12-78); Albumin Level 4.7 g/dl (3.5-5.0); Alkaline Phosphatase 85 U/L (38-126); Aspartate Amino Transferase 26 U/L (14-36); Bilirubin,Direct 0.1 mg/dl (0.0-0.4); Bilirubin,Indirect 0.2 mg/dL (0.0-0.9); Bilirubin,Total 0.3 mg/dl (0.2-1.3); Bilirubin,Unconjugated 0.1 mg/dL (0.0-1.1); Blood Urea Nitrogen 20 mg/dl (7-17); Calcium 9.7 mg/dl (8.4-10.2); Carbon Dioxide 32 mmol/L (22.0-30.0); Chloride 99 mmol/L (98-107); Chol/HDL Ratio 3.2 (1-3.5); Cholesterol 113 mg/dl (140-200); Estimated Glomerular Filt Rate 64 ml/min (>60); GFR (African American) 77 ML/MIN (>60); Glucose 92 mg/dl (74-100); HDL Cholesterol 35 mg/dl (40-60); Magnesium 2.2 mg/dl (1.6-2.3); Sodium 139 mmol/L (136-145); Total Protein,Serum 7.7 g/dl (6.3-8.2); Triglycerides 172 mg/dl (30-150); VLDL Cholesterol 34 mg/dL (0-40)
[2024-07-26 15:34] LABS: D-Dimer 0.29 ug/mL (0.0-0.5)
[2024-07-26 15:41] LABS: Direct LDL Cholesterol 49.14 mg/dL (100-129)
[2024-07-26 16:01] LABS: Thyroid Stimulating Hormone 2.16 uIU/mL (0.465-4.68)
[2024-07-26 16:40] LABS: Free T4 (Free Thyroxine) 0.95 ng/dl (0.78-2.19)
== END 2024-07-26 23:59 | disposition home or self-care (01) ==
LOC: LAB 14:32
PROVIDERS: PCP Family Medicine; Visit Provider Internal Medicine
DX: I25.10 Atherosclerotic heart disease of native coronary artery without angina pectoris (principal); I10 Essential (primary) hypertension; Z82.49 Family history of ischemic heart disease and other diseases of the circulatory system; I63.89 Other cerebral infarction
CPT/HCPCS: 36415; 80048; 80061; 80076; 83735; 84439; 84443; 85025; 85378

== ENCOUNTER 2024-08-16 06:17 | Outpatient (CLI) | payer OTHER, SELFPAY ==
--- NOTE | 2024-08-16 | CA_ITS ---
APPROVED REPORT Exam: Pharmacologic Technologist: Penelope Wood Ht: 5 ft 6 in Wt: 129 lbs BSA: 1.66 m2 Medical History Medications: Aspirin, carvedilol, clopidogrel, furosemide, creon, protonix, rosuvastatin, entresto, spironolactone, traxodone. Stress Test Details Test: Lexiscan Reason for pharmacologic stress test: physical limitation. HR Resting HR: 81 bpm Max Heart Rate (APMHR): 159.828044 bpm Max HR Achieved: 115 bpm Target HR (85% APMHR): 135.532952 bpm % of APMHR: 72.33 Recovery HR: 100 bpm BP Resting BP: 135.0/75.0 mmHg Max BP: 142.0/74.0 mmHg Recovery BP: 127.0/56.0 mmHg ECG Resting ECG: NSR Stress ECG Conclusion Symptoms: No CP. Arrhythmias/Ectopy: None. ST-T Changes: <1.[address] Segment changes Inferolaterally. Conclusion: Non-Diagnostic Lexiscan. Electronically signed by : Nicole Christopher MD 08/16/2024 13:04:43
--- NOTE | 2024-08-16 06:30 | NM_ITS ---
APPROVED REPORT Exam: Nuclear Stress Test Indication: Chest pain, SOB, HTN, High cholesterol, Tobacco use, Family history, CAD Patient Location: Outpatient Stress Tech: Penelope Ayala [place] Tech:Cindy Ordaz, ARRT, RT (R)(N) Ht: 5 ft 5 in Wt: 127 lbs Bra Size: 36B HR: 83 bpm BP: 135/75 mmHg BSA: 1.63 m2 TID: 1.02 BMI: 21.1 History: Chest pain, SOB, HTN, High cholesterol, Tobacco use, Family history, CAD Procedure: Patient received 0.4 mg of intravenous Lexiscan, resting heart rate 83 bpm, resting blood pressure 135/75 mmHg, with Lexiscan maximum heart rate achieved was 123 bpm which is % of the maximum predicted heart rate and blood pressure was 142/74 mmHg. With Lexiscan, patient denied any complaint of chest pain. Cardiac Stress and Resting SPECT Images: Cardiac Stress and Resting SPECT images were obtained using technetium 99m Myoview 29.9 mCi stress and 10.86 mCi at rest. Resting and stress imaging in supine and prone positions demonstrate no evidence of fixed or reversible perfusion defects. Gated imaging demonstrates normal global and regional LV systolic function. LVEF is calculated at 54%. Conclusion: No evidence of fixed or reversible perfusion defects. Gated imaging demonstrates normal global and regional LV systolic function. LVEF is calculated at 54%. Electronically signed by : Nicole Christopher MD 08/16/2024 13:00:03
[2024-08-16] MEDS: SODIUM CHLORIDE 0.9% 10ML SYR (RAD ONLY) 10 ML IV ×2 (08:22)
[2024-08-16] MEDS: REGADENOSON 0.4MG/5ML SYRINGE 0.4 MG IV (08:22)
[2024-08-16] MEDS: ISOTOPE MYOVIEW (PER STUDY) 1 DOSE IV (08:23)
--- NOTE | 2024-08-16 09:00 | CA_ITS ---
APPROVED REPORT EXAM: Comprehensive 2D, Doppler, and color-flow Echocardiogram Tem[employer] Operator: Susie Bautista CRT Ht: 5 ft 5 in Wt: 129lbs BSA: 1.64 BP: 97/60 mmHg Indications: Chest Pain, COPD, Shortness of Breath, CVA/TIA, Palpitations, Fatigue, CAD, Hyperlipidemia, Hypertension/HDD, Stents, cad, smoker 2D Dimensions LA Volume 32.60 mL LA Volume Index 19.40 mL/m2 (M/F) 16-34 M-Mode Dimensions RVDd 3.07 cm (0.9-2.6) LA Diam 3.24 cm (1.9-4.0) LVDd 3.60 cm (3.5-5.7) LVDs 2.60 cm (3.5-5.7) IVSd 1.28 cm (0.6-1.1) PWd 0.86 cm (0.6-1.1) EF (Teich) 54.80% FS 27.80% EDV (Teich) 54.40 mL TAPSE 1.94 (<1.7) ESV (Teich) 24.60 mL LV Diastology E Decel Time 150 (160-240 msec) E/A Ratio 0.71 MED A' 10.40 cm/s LAT A' 11.50 cm/s Aortic Valve AI PHT 472.00 ms AO Peak GR. 5.50 mmHg Mitral Valve MV E Max Ramirez. 73.0 (40-130 cm/s) MV A Velocity 103.0 (40-130 cm/s) E/A Ratio 0.71 MV PHT 44.0 ms Pulmonary Valve PV Peak Velocity 58.0 (50-150 cm/s) Tricuspid Valve TR P. Velocity 274.00 cm/s RAP Estimate 10.00 mmHg RVSP 40.10 mmHg Left Ventricle The left ventricle is normal size. The left ventricular systolic function is normal. The left ventricular ejection fraction is within the normal range. There is increased LV wall thickness. There is normal LV segmental wall motion. Transmitral Doppler flow pattern suggests impaired LV relaxation. LVEF is 55%. Right Ventricle The right ventricle is normal size. The right ventricular systolic function is normal. Atria The left atrium size is normal. The right atrium size is normal. There is no Doppler evidence of interatrial shunt. Aortic Valve Aortic valve is mildly thickened. Mild aortic regurgitation. There is no aortic valvular stenosis. Mitral Valve The mitral valve is normal in structure. No evidence of mitral valve stenosis. Trace mitral regurgitation. Tricuspid Valve Tricuspid valve is grossly normal in structure and function. Mild tricuspid regurgitation. RVSP is 30-35 mmHg. Pulmonic Valve The pulmonary valve is normal in structure. Trace pulmonic regurgitation. Great Vessels The aortic root is normal in size. IVC is normal in size and collapses >50% with inspiration. Pericardium There is no pericardial effusion. Other Information Study Quality: Fair Conclusion Normal biventricular systolic function. Mild AI, mild TR. RVSP is 30-35 mmHg. Electronically signed by : Nicole Christopher MD 08/16/2024 12:46:54
== END 2024-08-16 23:59 | disposition home or self-care (01) ==
LOC: RAD 06:17
PROVIDERS: PCP Family Medicine; Visit Provider Internal Medicine
DX: R07.89 Other chest pain (principal); R06.09 Other forms of dyspnea
CPT/HCPCS: 78452; 93017; 93018; 93306; A9502; J2785

== ENCOUNTER 2025-03-25 22:11 | Emergency (ER) | payer OTHER, SELFPAY ==
--- NOTE | 2025-03-25 22:12 | ECG_ITS ---
APPROVED REPORT Exam: Resting ECG HR:92 bpm ECG Measurements Heart Rate 92 AXES [place] 165 P 80 QRSd 50 QRS 75 QT 335 T 75 QTc 384 Conclusion SINUS RHYTHM NORMAL ECG Electronically signed by : SOHEILA LAM, 03/27/2025 17:10:45
[2025-03-25 22:15] VITALS: BP 113/88; PULSE 95; RESP 22; TEMP 36.6; O2SAT 99; BMI 21.6
--- NOTE | 2025-03-25 22:16 | HMH.EDGENADL ---
Discharge Plan Disposition Patient Disposition: Home, Self-Care Prescriptions Prescriptions: New azithromycin 250 mg tablet See Rx Instructions .ROUTE .COMPLEX Qty: 6 0RF Rx Instructions: For 250 mg dose pack: take 500 mg today (day 1), then 250 mg for 4 days (days 2-5) prednisone 50 mg tablet 50 mg PO DAILY 5 Days Qty: 5 0RF No Action trazodone 50 mg tablet 50 mg PO HS PRN (Reason: .) rosuvastatin 10 mg tablet 10 mg PO DAILY aspirin [Enteric Coated Aspirin] 81 mg tablet,delayed release (DR/EC) 81 mg PO DAILY Qty: 90 1RF Entresto 24-26 mg tablet 1 tab PO BID Qty: 60 5RF pantoprazole [Protonix] 40 mg tablet,delayed release (DR/EC) 40 mg PO DAILY 90 Days Qty: 104 3RF Creon 36,000-114,000- 180,000 unit capsule,delayed release(DR/EC) See Rx Instructions .ROUTE .COMPLEX Qty: 180 10RF Dose Instruction: TAKE 2 CAPSULES BY MOUTH 3 TIMES A DAY WITH MEALS Rx Instructions: TAKE 2 CAPSULES BY MOUTH 3 TIMES A DAY WITH MEALS furosemide 40 mg tablet See Rx Instructions .ROUTE .COMPLEX Qty: 90 3RF Dose Instruction: TAKE ONE TABLET BY MOUTH ONCE A DAY Rx Instructions: TAKE ONE TABLET BY MOUTH ONCE A DAY spironolactone [Aldactone] 50 mg tablet 50 mg PO DAILY Qty: 30 5RF carvedilol 25 mg tablet 25 mg PO BID Qty: 180 1RF Rx Instructions: must administer with a meal/food Referrals Follow up/Referrals: Shane Kumar MD [Primary Care Provider, Medical] - See instructions Activity Restrictions/Add. Instructions Additional Instructions/Restrictions: Please follow-up with your primary care provider. Please return to the emergency department if you develop any new or worsening symptoms or become concerned for your health. Please take steroids and azithromycin as prescribed for treatment of COPD exacerbation. Clinical Impressions Clinical Impression: Acute exacerbation of chronic obstructive pulmonary disease Print Language Print Language: Vietnamese Discharge ED Provider: Arlin Valdovinos General Adult HPI <Arlin Valdovinos DO - Last Filed: 03/25/25 23:20> General Chief complaint: Shortness of Breath/Dyspnea Stated complaint: SOA Time Seen by Provider: 03/25/25 22:16 History of Present Illness HPI narrative: Patient is a 59-year-old female with a past medical history of COPD, current smoker, previous AZ with stents in place, chronic pancreatitis who presents to the emergency department with chest pain and shortness of breath. Patient states that she has been having intermittent chest pain but was worse tonight while cooking. Patient also reports shortness of breath that is worse today. Patient states that she tried her albuterol inhaler at home without significant relief. Patient states that she has not had any fevers. Patient does state that she had the flu a few weeks ago. Patient denies any cough. Patient denies any abdominal pain nausea vomiting or diarrhea. Patient denies any headache or other upper respiratory symptoms. Patient denies any lower extremity swelling. Patient denies any recent sick contacts. Does report a history of a pulmonary embolism more than 20 years ago after a hysterectomy. Patient took 81 mg of aspirin earlier today. Patient is not on any other blood thinners. Per EMS, a pulse ox was not obtained the patient was placed on 4 L nasal cannula on arrival with approproate O2 sat after 4L NC. Patient was given 125 mg of Solu-Medrol. Patient was given 1 DuoNeb and route. Patient otherwise remained hemodynamically stable. Related Data Home Medications ?Medication ?Instructions ?Recorded ?Confirmed trazodone 50 mg tablet 50 mg PO HS PRN . 12/02/21 01/09/25 rosuvastatin 10 mg tablet 10 mg PO DAILY 07/26/24 01/09/25 Previous Rx's ?Medication ?Instructions ?Recorded aspirin 81 mg tablet,delayed 81 mg PO DAILY #90 tabs 01/25/24 release (Enteric Coated Aspirin) sacubitril 24 mg-valsartan 26 mg 1 tab PO BID #60 tabs 09/21/24 tablet (Entresto) pantoprazole 40 mg tablet,delayed 40 mg PO DAILY 90 days #104 tabs 12/20/24 release (Protonix) [id number] See Rx Instructions .Route 01/10/25 (pork)36,000-114,000-180k unit .COMPLEX #180 caps capsule,del rel (Creon) furosemide 40 mg tablet See Rx Instructions .Route 01/26/25 .COMPLEX #90 tabs spironolactone 50 mg tablet 50 mg PO DAILY #30 tabs 01/26/25 (Aldactone) carvedilol 25 mg tablet 25 mg PO BID #180 tabs 03/12/25 azithromycin 250 mg tablet See Rx Instructions PO .COMPLEX #6 03/26/25 tabs prednisone 50 mg tablet 50 mg PO DAILY 5 days #5 tabs 03/26/25 Allergies Allergy/AdvReac Type Severity Reaction Status Date / Time No Known Allergies Allergy Verified 01/09/25 08:17 [facility] <Arlin Valdovinos, DO - Last Filed: 03/25/25 23:20> [facility] Disclaimer: The information contained in this section may have been updated after the patient was seen, as this information can be updated by other users. Medical History Tobacco abuse counseling Tobacco abuse Pulmonary emphysema Encounter for screening for malignant neoplasm of lung Smoking greater than 30 pack years Dyspnea on exertion Palpitations Numbness of toes Numbness of fingers Coronary artery disease Systolic heart failure Tachycardia Typical angina Abnormal result of cardiovascular function study Chest pain Surgical History History of coronary artery stent placement Family History Other COPD (chronic obstructive pulmonary disease) Cancer Diabetes Heart attack Hypertension Stroke Social History Smoking Status: Current every day smoker tobacco type: cigarettes packs per day: 1 second hand exposure: No alcohol intake: never substance use type: denies use current occupational status: unemployed Travel in the last 8 weeks?: None household members: spouse housing: house current occupation: HOUSE current occupational exposures/hazards: No caffeine: Yes Have you lived/traveled outside US in past 30 days?: No Contact w/someone who lives/traveled outside US past 30 days?: No Exposure to someone with infectious disease in past 14 days?: No Do you have a fever (greater than 100.4 F or 38 C)?: No Have you tested positive for COVID-19?: No Exposed to someone with COVID-19 in past 14 days?: No Do you have a sore throat?: No Do you have a cough?: No Do you have any weakness?: No Do you have any diarrhea?: No Are you experiencing any unusual bleeding?: No Do you have any muscle aches/pain?: No Do you have any abdominal pain?: No Are you experiencing loss of taste or smell?: No Other Medical History Have you received the Flu Vaccine for this season: Yes Have you received the Pneumonia Vaccine: Yes <Arlin Valdovinos, - Last Filed: 03/25/25 23:20> ROS Obtained: Yes All systems reviewed & no additional complaints except as documented and Yes Systems reviewed as appropriate & no additional complaints except as documented Physical Exam <Arlinbrunilda Valdovinos, DO - Last Filed: 03/25/25 23:20> General General appearance: alert and in no apparent distress Head Head exam: atraumatic, normocephalic and normal inspection Eye Eye exam: Present normal appearance, PERRL and EOMI; Absent scleral icterus ENT ENT exam: Present normal exam and normal external ear exam Neck Neck exam: Present normal inspection and full ROM Chest Chest inspection: Present normal inspection and symmetric chest wall rise Respiratory Respiratory exam: Present respiratory distress, wheezes and other (decreased breath sounds diffusely, with mild expiratory wheeze, tachypneic) Cardiovascular Cardiovascular exam: Present regular rate, normal rhythm, normal heart sounds and other (no lower extremity edema) Abdominal Exam Abdominal exam: Present soft and distention; Absent tenderness, guarding or rebound Extremities Exam Extremities exam: Present normal inspection and full ROM Back Exam Back exam: Present normal inspection and full ROM Neurological Exam Neurological exam: Present alert and oriented X3 Psychiatric Psychiatric exam: Present normal affect and normal mood Skin Skin exam: Present warm and dry Medical Decision Making <Arlin Valdovinos, DO - Last Filed: 03/25/25 23:20> Medical Records Medical records reviewed: Yes I reviewed the patient's medical records. Screening: Per USPSTF and CDC recommendations, given the prevalence of disease in our region, it is our hospital?s policy to screen for HIV and viral Hepatitis for all patients aged 18 and over and those with ongoing risk factors. Stepan Inquiry Pt receiving controlled substance: No Vital Signs: 03/25/25 22:15 03/25/25 22:30 03/25/25 23:01 Temperature 97.9 F Temperature Source Oral Pulse Rate 88 86 Pulse Rate [Right Radial] 95 H Respiratory Rate 22 19 21 Blood Pressure 113/68 135/72 Blood Pressure [Right Arm] 113/88 Blood Pressure Mean 83 93 Blood Pressure Mean [Right Arm] 96 Blood Pressure Source Blood Pressure Source [Right Arm] Automatic Cuff Blood Pressure Position 02 Sat by Pulse Oximetry 99 99 100 Oxygen Delivery Method Nasal Cannula Oxygen Flow Rate (LPM) 4 03/25/25 23:30 03/26/25 00:00 03/26/25 00:30 Temperature Temperature Source Pulse Rate 81 85 91 H Pulse Rate [Right Radial] Respiratory Rate 18 22 30 H Blood Pressure 113/66 111/66 117/62 Blood Pressure [Right Arm] Blood Pressure Mean 84 82 89 Blood Pressure Mean [Right Arm] Blood Pressure Source Blood Pressure Source [Right Arm] Blood Pressure Position 02 Sat by Pulse Oximetry 98 98 96 Oxygen Delivery Method Oxygen Flow Rate (LPM) 03/26/25 01:48 Temperature 98.1 F Temperature Source Oral Pulse Rate 91 H Pulse Rate [Right Radial] Respiratory Rate 18 Blood Pressure 114/67 Blood Pressure [Right Arm] Blood Pressure Mean Blood Pressure Mean [Right Arm] Blood Pressure Source Automatic Cuff Blood Pressure Source [Right Arm] Blood Pressure Position Sitting 02 Sat by Pulse Oximetry Oxygen Delivery Method Room Air Oxygen Flow Rate (LPM) Lab Data Lab results reviewed: Yes I reviewed the patient's lab results. Lab Results 03/25/25 21:52: WBC 11.1 H, RBC 4.12 L, Hgb 12.5, Hct 37.6, MCV 91.3, MCH 30.3, MCHC 33.2, RDW 12.2, Plt Count 280, MPV 9.2, Neut % (Auto) 66.8, Lymph % (Auto) 19.3, Beaver % (Auto) 10.1 H, Eos % (Auto) 3.0, Baso % (Auto) 0.5, Neut # (Auto) 7.4, Lymph # (Auto) 2.2, Beaver # (Auto) 1.1 H, Eos # (Auto) 0.3, Baso # (Auto) 0.1, D-Dimer 0.40, VBG pH 7.27 L, VBG pCO2 59.3 H, VBG pO2 65.4 H, VBG HCO3 26.6, VBG Total CO2 28.4 H, VBG O2 Saturation 90.6 H, VBG Base Excess -0.4, VBG Lactic Acid 0.9, Sodium 147 H, Potassium 4.1, Chloride 106, Carbon Dioxide 29, Anion Gap 16.1 H, BUN 20 H, Creatinine 1.00, Estimated Creat Clear 55, Estimated GFR 56 L, Est GFR ( Amer) 68, Glucose 98, Calcium 9.1, Total Bilirubin 0.1 L, AST 21, ALT 15, Alkaline Phosphatase 112, Troponin I < 0.01, NT-Pro-B Natriuret Pep 104, Total Protein 7.3, Albumin 4.5, Globulin 2.8, Albumin/Globulin Ratio 1.6, HCV Ab KATHERYN w/Rflx PCR Qn Negative, HIV Ag/Ab Combo Qual Negative 03/25/25 22:39: SARS-CoV-2 (PCR) Not detected, Influenza Type A (PCR) Not detected, Influenza Type B (PCR) Not detected, RSV (PCR) Not detected, Rhinovirus (PCR) Not detected 03/26/25 00:48: Troponin I 0.02 03/25/25 21:52 03/25/25 21:52 Orders (Tests/Meds): ED MEDICATIONS Discontinued Medications Generic Name Dose Route Start Last Admin Trade Name Freq PRN Reason Stop Dose Admin Albuterol Sulfate 20 mg 03/25/25 23:07 03/25/25 23:34 Albuterol 0.083% 2.5 Mg/3 Ml [facility] 03/25/25 23:08 20 mg ONCE ONE Administration Albuterol Sulfate 2 puff 03/26/25 00:43 03/26/25 01:53 Albuterol-Hfa 90mcg/Puff Inhaler 8gm 04/25/25 00:42 2 puff Q4HP PRN Administration Shortness Of Breath Albuterol/Ipratropium 9 ml 03/25/25 22:17 03/25/25 22:54 Ipratropium/Albuterol 3 Ml [facility] 03/25/25 22:18 9 ml ONCE ONE Administration Aspirin 243 mg 03/25/25 22:28 03/25/25 22:36 Aspirin Ec 81mg Tablet PO 03/25/25 22:29 243 mg ONCE ONE Administration Magnesium Sulfate 2 gm in 50 mls @ 50 mls/hr 03/25/25 22:17 03/25/25 23:32 Magnesium Sulfate 2gm/50ml Premix IV 03/25/25 23:16 Infused ONCE ONE Infusion Sodium Chloride 1,000 mls @ 999 mls/hr 03/25/25 22:19 03/26/25 00:22 Sod Chlor 0.9% 1000ml Bag IV 03/25/25 23:19 Infused .Q1H1M ONE Infusion Miscellaneous 1 unit 03/26/25 00:43 03/26/25 01:54 Aerochamber/Optihaler MC 03/26/25 00:44 1 unit ONCE ONE Administration ORDERS Category Date Time Status CXR --portable [XR chest portable] Stat Exams 03/25/25 22:17 Completed BNP [NT Pro Brain Natriuretic Pep.] Stat Lab 03/25/25 21:52 Completed CBC w/Auto Diff [Complete Blood Count Auto Diff] Stat Lab 03/25/25 21:52 Completed CMP [Comprehensive Metabolic Panel] Stat Lab 03/25/25 21:52 Completed D-Dimer Stat Lab 03/25/25 21:52 Completed HIV Combo Stat Lab 03/25/25 21:52 Completed Hepatitis C Ab Qual. W/ RFX Stat Lab 03/25/25 21:52 Completed Mini Respiratory Panel Stat Lab 03/25/25 22:39 Completed Trop I [Troponin I] Stat Lab 03/25/25 21:52 Completed Troponin I Q3H Lab 03/26/25 00:48 Completed VBG [Venous Blood Gas] Stat RT 03/25/25 21:52 Completed Medical Decision Narrative: Patient is a 59-year-old female with a past medical history of COPD, previous [place] with cardiac stents, pancreatitis who presented to the emergency department with chest pain and shortness of breath. On arrival, patient was on 4 L nasal cannula saturating 98%. Patient's vital signs were otherwise unremarkable. Differential includes but not limited to: COPD exacerbation, heart failure, pneumonia, viral syndrome, pulmonary embolism, pleural effusion, pneumothorax, ACS/AZ, amongst others. Of note, patient was tachypneic with diffusely decreased breath sounds bilaterally with mild expiratory wheezing. Patient had no lower extremity edema. Patient had already been given 1 DuoNeb and route as well as 125 of Solu-Medrol. Patient was ordered 3 additional DuoNebs as well as magnesium and IV fluids given no evidence of volume overload on exam. Chest x-ray labs and VBG were ordered. Patient's initial VBG showed mild acidosis with mild hypercapnia with a CO2 of 59. Patient CBC showed mild leukocytosis of 11, hemoglobin was stable. CMP showed some hypernatremia of 147 with a mild anion gap of 16. Initial troponin less than 0.01. D-dimer was 0.40. Chest x-ray was reviewed and interpreted by myself and showed no acute focal saltation, pneumothorax, pleural effusion or other acute cardiopulmonary process. After 3 DuoNebs, patient did have improvement in her aeration, patient continued to have additional wheezing therefore an hour of continuous albuterol was ordered. Patient initially arrived on 4 L nasal cannula, patient was put to 1 L nasal cannula. Patient was signed out to the oncoming provider pending repeat troponin, and repeat assessment after further medications for her shortness of breath. <Kaz Barahona MD - Last Filed: 03/26/25 03:29> Vital Signs: 03/25/25 22:15 03/25/25 22:30 03/25/25 23:01 Temperature 97.9 F Temperature Source Oral Pulse Rate 88 86 Pulse Rate [Right Radial] 95 H Respiratory Rate 22 19 21 Blood Pressure 113/68 135/72 Blood Pressure [Right Arm] 113/88 Blood Pressure Mean 83 93 Blood Pressure Mean [Right Arm] 96 Blood Pressure Source Blood Pressure Source [Right Arm] Automatic Cuff Blood Pressure Position 02 Sat by Pulse Oximetry 99 99 100 Oxygen Delivery Method Nasal Cannula Oxygen Flow Rate (LPM) 4 03/25/25 23:30 03/26/25 00:00 03/26/25 00:30 Temperature Temperature Source Pulse Rate 81 85 91 H Pulse Rate [Right Radial] Respiratory Rate 18 22 30 H Blood Pressure 113/66 111/66 117/62 Blood Pressure [Right Arm] Blood Pressure Mean 84 82 89 Blood Pressure Mean [Right Arm] Blood Pressure Source Blood Pressure Source [Right Arm] Blood Pressure Position 02 Sat by Pulse Oximetry 98 98 96 Oxygen Delivery Method Oxygen Flow Rate (LPM) 03/26/25 01:48 Temperature 98.1 F Temperature Source Oral Pulse Rate 91 H Pulse Rate [Right Radial] Respiratory Rate 18 Blood Pressure 114/67 Blood Pressure [Right Arm] Blood Pressure Mean Blood Pressure Mean [Right Arm] Blood Pressure Source Automatic Cuff Blood Pressure Source [Right Arm] Blood Pressure Position Sitting 02 Sat by Pulse Oximetry Oxygen Delivery Method Room Air Oxygen Flow Rate (LPM) Lab Data Lab Results 03/25/25 21:52: WBC 11.1 H, RBC 4.12 L, Hgb 12.5, Hct 37.6, MCV 91.3, MCH 30.3, MCHC 33.2, RDW 12.2, Plt Count 280, MPV 9.2, Neut % (Auto) 66.8, Lymph % (Auto) 19.3, Beaver % (Auto) 10.1 H, Eos % (Auto) 3.0, Baso % (Auto) 0.5, Neut # (Auto) 7.4, Lymph # (Auto) 2.2, Beaver # (Auto) 1.1 H, Eos # (Auto) 0.3, Baso # (Auto) 0.1, D-Dimer 0.40, VBG pH 7.27 L, VBG pCO2 59.3 H, VBG pO2 65.4 H, VBG HCO3 26.6, VBG Total CO2 28.4 H, VBG O2 Saturation 90.6 H, VBG Base Excess -0.4, VBG Lactic Acid 0.9, Sodium 147 H, Potassium 4.1, Chloride 106, Carbon Dioxide 29, Anion Gap 16.1 H, BUN 20 H, Creatinine 1.00, Estimated Creat Clear 55, Estimated GFR 56 L, Est GFR ( Amer) 68, Glucose 98, Calcium 9.1, Total Bilirubin 0.1 L, AST 21, ALT 15, Alkaline Phosphatase 112, Troponin I < 0.01, NT-Pro-B Natriuret Pep 104, Total Protein 7.3, Albumin 4.5, Globulin 2.8, Albumin/Globulin Ratio 1.6, HCV Ab KATHERYN w/Rflx PCR Qn Negative, HIV Ag/Ab Combo Qual Negative 03/25/25 22:39: SARS-CoV-2 (PCR) Not detected, Influenza Type A (PCR) Not detected, Influenza Type B (PCR) Not detected, RSV (PCR) Not detected, Rhinovirus (PCR) Not detected 03/26/25 00:48: Troponin I 0.02 Orders (Tests/Meds): ED MEDICATIONS Discontinued Medications Generic Name Dose Route Start Last Admin Trade Name Freq PRN Reason Stop Dose Admin Albuterol Sulfate 20 mg 03/25/25 23:07 03/25/25 23:34 Albuterol 0.083% 2.5 Mg/3 Ml Neb 03/25/25 23:08 20 mg ONCE ONE Administration Albuterol Sulfate 2 puff 03/26/25 00:43 03/26/25 01:53 Albuterol-Hfa 90mcg/Puff Inhaler 8gm 04/25/25 00:42 2 puff Q4HP PRN Administration Shortness Of Breath Albuterol/Ipratropium 9 ml 03/25/25 22:17 03/25/25 22:54 Ipratropium/Albuterol 3 Ml Neb 03/25/25 22:18 9 ml ONCE ONE Administration Aspirin 243 mg 03/25/25 22:28 03/25/25 22:36 Aspirin Ec 81mg Tablet PO 03/25/25 22:29 243 mg ONCE ONE Administration Magnesium Sulfate 2 gm in 50 mls @ 50 mls/hr 03/25/25 22:17 03/25/25 23:32 Magnesium Sulfate 2gm/50ml Premix IV 03/25/25 23:16 Infused ONCE ONE Infusion Sodium Chloride 1,000 mls @ 999 mls/hr 03/25/25 22:19 03/26/25 00:22 Sod Chlor 0.9% 1000ml Bag IV 03/25/25 23:19 Infused .Q1H1M ONE Infusion Miscellaneous 1 unit 03/26/25 00:43 03/26/25 01:54 Aerochamber/Optihaler MC 03/26/25 00:44 1 unit ONCE ONE Administration ORDERS Category Date Time Status CXR --portable [XR chest portable] Stat Exams 03/25/25 22:17 Completed BNP [NT Pro Brain Natriuretic Pep.] Stat Lab 03/25/25 21:52 Completed CBC w/Auto Diff [Complete Blood Count Auto Diff] Stat Lab 03/25/25 21:52 Completed CMP [Comprehensive Metabolic Panel] Stat Lab 03/25/25 21:52 Completed D-Dimer Stat Lab 03/25/25 21:52 Completed HIV Combo Stat Lab 03/25/25 21:52 Completed Hepatitis C Ab Qual. W/ RFX Stat Lab 03/25/25 21:52 Completed Mini Respiratory Panel Stat Lab 03/25/25 22:39 Completed Trop I [Troponin I] Stat Lab 03/25/25 21:52 Completed Troponin I Q3H Lab 03/26/25 00:48 Completed VBG [Venous Blood Gas] Stat RT 03/25/25 21:52 Completed Medical Decision Narrative: Patient is a 59-year-old female with a past medical history of COPD, previous AZ with cardiac stents, pancreatitis who presented to the emergency department with chest pain and shortness of breath. On arrival, patient was on 4 L nasal cannula saturating 98%. Patient's vital signs were otherwise unremarkable. Differential includes but not limited to: COPD exacerbation, heart failure, pneumonia, viral syndrome, pulmonary embolism, pleural effusion, pneumothorax, ACS/AZ, amongst others. Of note, patient was tachypneic with diffusely decreased breath sounds bilaterally with mild expiratory wheezing. Patient had no lower extremity edema. Patient had already been given 1 DuoNeb and route as well as 125 of Solu-Medrol. Patient was ordered 3 additional DuoNebs as well as magnesium and IV fluids given no evidence of volume overload on exam. Chest x-ray labs and VBG were ordered. Patient's initial VBG showed mild acidosis with mild hypercapnia with a CO2 of 59. Patient CBC showed mild leukocytosis of 11, hemoglobin was stable. CMP showed some hypernatremia of 147 with a mild anion gap of 16. Initial troponin less than 0.01. D-dimer was 0.40. Chest x-ray was reviewed and interpreted by myself and showed no acute focal saltation, pneumothorax, pleural effusion or other acute cardiopulmonary process. After 3 DuoNebs, patient did have improvement in her aeration, patient continued to have additional wheezing therefore an hour of continuous albuterol was ordered. Patient initially arrived on 4 L nasal cannula, patient was put to 1 L nasal cannula. Patient was signed out to the oncoming provider pending repeat troponin, and repeat assessment after further medications for her shortness of breath. Jun PARSON: I assumed care of the patient at the time of handoff from the prior provider. On reassessment, patient has completed her 1 hour of continuous. She feels much better and was transitioned off of nasal cannula oxygen. Her second opponent returns within normal limits. she continued to be monitored for some time after the neb finished and she remained well-appearing. She was discharged in stable condition with prescription for azithromycin and steroids for treatment of COPD exacerbation. Critical Care <Arlin Valdovinos DO - Last Filed: 03/25/25 23:20> Critical Care Time Critical Care Time: No <Kaz Barahona MD - Last Filed: 03/26/25 03:29> Critical Care Time Critical Care Time: Yes Attestation: On 03/25/25, the high probability of a clinically significant, sudden or life threatening deterioration of the following system(s) required my full and direct attention, intervention and personal management. The time I documented below is in addition to time spent performing reported procedures but includes the following listed in this critical care notation. Total Time Total Critical Care Time: 35
--- NOTE | 2025-03-25 22:17 | XR_ITS ---
PROCEDURE INFORMATION: Exam: XR Chest Exam date and time: 03/25/2025 10:42 PM Age: 59 years old Clinical indication: Shortness of breath; Additional info: Chest pain/shortness of breath TECHNIQUE: Imaging protocol: Radiologic exam of the chest. Views: 1 view. COMPARISON: CR XR CHEST 2V 05/09/2024 8:42 AM FINDINGS: Lungs: No evidence of airspace infiltrate. No pulmonary edema. Pleural spaces: No visible pleural effusion. No pneumothorax. Heart/Mediastinum: Cardiomediastinal silhouette is unchanged, accounting for differences in technique. Bones/joints: No evidence of acute osseous abnormality. IMPRESSION: No acute findings.
--- OUTSIDE RECORDS SUMMARY | 2025-03-25 22:17 | XMS_ITS | Encounter Summary ---
[facility] Address [address] [place] [address] Care Team Providers Care Supervisor Coffee Name Role Phone Shane Kumar MD Primary Care Provider + Reason for Visit * Reason Comments Med Refill Encounter Details Date Type Department Care Team (Late Contact Info) Description 03/15/2025 Refill [facility] [address] [place] [id number] Shane Kumar MD [address] [place] [address] Primary insomnia Social History Tobacco Use Types Packs/Day Years Used Date Smoking Tobacco: Every Day Cigarettes Smokeless Tobacco: Never Alcohol Use Standard Drinks/Week Comments Never 0 (1 standard drink = 0.6 oz pur e alcohol) PHQ-2 Answer Date Recorded Patient Health Questionnaire-2 Score 1 12/07/2024 Comments No Sex and Gender Information Value Date Recorded Sex Assigned at Not on file Legal Sex Female 8:35 AM EDT Gender Identity Not on file Sexual Orientation Not on file documented as of this encounter Plan of Treatment Upcoming Encounters Date Type Department Care Team (Late Contact Info) Description 06/14/2025 10:15 AM EST Office Visit [facility] [address] [place] [phone] Shane Kumar MD [address] [place] [address] documented as of this encounter Visit Diagnoses Diagnosis Primary insomnia Persistent disorder of initiating or maintaining sleep documented in this encounter Care Teams Supervisor Coffee Relationship Specialty Start Date End Date Shane Kumar MD [address] [place] [address] PCP - General Family Medicine 03/09/24 documented as of this encounter
--- OUTSIDE RECORDS SUMMARY | 2025-03-25 22:17 | XMS_ITS | Clinical Summary ---
Author Organization [facility] Address [address] [place] [id number] Care Team Providers Care Music Adapter Name Role Phone Shane Kumar MD Primary Care Provider + Allergies No known active allergies Medications spironolactone (ALDACTONE) 100 MG tablet Take 1 tablet by mouth Daily. Active Pancrelipase, Wmb-Hxgf-Gxmd, (CREON) 35018-116075 units capsule delayed-releas e particles capsule Take by mouth 3 (Three) Times a Day With Meals. 2 caps TID Active pantoprazole (PROTONIX) 40 MG EC tablet Take 1 tablet by mouth Daily. Active carvedilol (COREG) 25 MG tablet Take 1 tablet by mouth 2 (Two) Times a Day With Meals. Active furosemide (LASIX) 40 MG tablet Take 1 tablet by mouth Daily. Active aspirin 325 MG tablet Take 1 tablet by mouth Daily. Active sacubitril-rogerio sartan (Entresto) 24-26 MG tablet Take 1 tablet by mouth 2 (Two) Times a Day. Active clopidogrel (PLAVIX) 75 MG tablet Take 1 tablet by mouth Daily. 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 90 tablet 3 5 Active traZODone (DESYREL) 50 MG tabletIndicati ons:Primary insomnia TAKE ONE TABLET BY MOUTH AT BEDTIME 30 tablet 4 5 Active traZODone (DESYREL) 50 MG tabletIndicati ons:Primary insomnia Take 1 tablet by mouth Every Night. 30 tablet 11 4 03/15/20 25 Discontinued Active Problems Problem Noted Date Diagnosed Date Cigarette smoker 06/09/2024 Overview (06/09/2024): 1 ppd smoker x 40 years began reducing in 2019. 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 03/09/2024 Encounters Date Type Department Care Team Description 03/15/2025 Refill [facility] [address] [place] [address] Shane Kumar MD Primary insomnia 03/13/2025 Telephone [facility] [address] [place] [address] Navigator, Lung from Last 3 Months Immunizations Immunization Administration Dates Next Due COVID-19 (MODERNA) 1st,2nd,3rd Dose Monovalent 0 09/04/2020,07/24/2020 Influenza, Unspecified 12/26/2023 Pneumococcal Conjugate 20-Valent (PCV20) 025 Pneumococcal Polysaccharide (PPSV23) 11/24/2013 Family History Medical History Relation Name Comments Kidney disease Brother Liver disease Brother Stroke Brother Cancer Father lung Cancer Mother colon Breast cancer Niece Diabetes Sister Heart attack Sister Heart disease Sister Hypertension Sister Kidney disease Sister Liver disease Sister Ovarian cancer Neg Hx Relation Name Status Comments Brother Father Mother Niece Alive Sister Social History Tobacco Use Types Packs/Day Years Used Date Smoking Tobacco: Every Day Cigarettes Smokeless Tobacco: Never Tobacco Cessation:Ready to Q uit: No; Counseling Given: Not Answered Alcohol Use Standard Drinks/Week Comments Never 0 (1 standard drink = 0.6 oz pur e alcohol) PHQ-2 Answer Date Recorded Patient Health Questionnaire-2 Score 1 12/07/2024 Comments No Sex and Gender Information Value Date Recorded Sex Assigned at Not on file Legal Sex Female 8:35 AM EDT Gender Identity Not on file Sexual Orientation Not on file Last Filed Vital Signs Vital Sign Reading Time Taken Comments Blood Pressure 118/80 12/07/2024 9:33 AM EDT Pulse 83 12/07/2024 9:33 AM EDT Temperature 36.2 C (97.1 F) 12/07/2024 9:33 AM EDT Respiratory Rate 20 06/09/2024 8:54 AM EST Oxygen Saturation 99% 12/07/2024 9:33 AM EDT Inhaled Oxygen Concentration - - Weight 59.5 kg (131 lb 3.2 oz) 12/07/2024 9:33 A M EDT Height 160 cm (5' 3 ) 12/07/2024 9:33 AM EDT Body Mass Index 23.24 12/07/2024 9:33 AM EDT Plan of Treatment Upcoming Encounters Date Type Department Care Team (Late st Contact Info) Description 06/14/2025 10:15 AM EST Office Visit [facility] [address] [facility] [place] [address] Shane Kumar MD [address] [place] [address] Health Maintenance Due Date Last Done Comments Annual Gynecologic Pelvic an d Breast Exam 1963 TDAP/TD VACCINES (1 - Tdap) 1982 COLOGUARD 2008 COLON CANCER SCREENING 5 YEA R SIGMOIDOSCOPY 2008 COLONOSCOPY [address] SCREENING [address] COLONOGRAPHY 2008 FECAL OCCULT BLOOD TEST 2008 FIT Testing (1 year) 2008 ZOSTER VACCINE (1 of 2) 2013 HEPATITIS C SCREENING 03/09/2024 INFLUENZA VACCINE 11/24/2024 12/26/2023 ANNUAL PHYSICAL 06/09/2025 06/09/2024 MAMMOGRAM 04/24/2026 04/24/2024, 03/26, 03/03/2023, Additional history exists Pneumococcal Vaccine 50+ Completed 06/09/2024, 04/2013 Procedures Procedure Name Priority Date/Time Associated Diagnosis Comments MAMMO SCREENING DIGITAL TOMOSYNTHESIS BILATERAL W CAD Routine 04/13/2024 8:44 AM EST Encounter for screening mammogram for malignant neoplasm of breast from Last 3 Months or Most Recently Relevant to Health Maintenance Results * Mammo Screening Digital Tomosynthesis Bilateral With CAD (04/13/2024 8:44 AM EST) Anatomical Region Laterality Modality Breast N/A Mammography 04/24/2024 4:57 PM EST Impressions 04/24/2024 5:07 PM EST Benign screening mammogram. RECOMMENDATION: Continue annual screening mammography. BI-RADS CATEGORY 2, BENIGN. CAD was utilized. The standard false-negative rate of mammography is between 10% and 25%. Complex patterns or increased breast density will markedly elevate the false-negative rate of mammography. A letter, in lay terminology, with the results of this exam will be mailed to the patient. This report was finalized on 04/24/2024 5:[address] Morena Tan MD. Narrative 04/24/2024 5:07 PM EST BILATERAL SCREENING MAMMOGRAM WITH TOMOSYNTHESIS: HISTORY: The patient has no personal history or significant family history of breast cancer and no focal breast complaints at the time of screening mammography. A niece was diagnosed with breast cancer at age 47. The patient has lost 15 pounds since her prior mammogram. TECHNIQUE: Bilateral CC and MLO low dose, full field digital mammographic images were obtained with tomosynthesis. COMPARISON: [facility] mammograms dated 03/03/2023, 08/15/2021, 10/12/2016, 10/10/2015, and 05/02/2014. FINDINGS: The breast tissue is heterogeneously dense, which may obscure small masses. The fibroglandular pattern is stable. No significant change is noted in multiple bilateral scattered and grouped calcifications. There are no suspicious masses, worrisome calcifications, nonsurgical areas of architectural distortion, or other secondary signs of malignancy. Shane Kumar MD IMG MAMMOGRAPHY ORDERABL ES Final Result from Last 3 Months or Most Recently Relevant to Health Maintenance Insurance [address] [place] [id number] [facility] Care Teams Music Adapter Relationship Specialty Start Date End Date Shane Kumar MD [address] [place] [address] PCP - General Family Medicine 03/09/24
--- OUTSIDE RECORDS SUMMARY | 2025-03-25 22:17 | XMS_ITS | Clinical Summary ---
Author Organization [facility] Address [address] [place] [address] Care Team Providers Care Hard Rock Drill Operator Name Role Phone Shane Kumar MD Primary Care Provider [phone] Immunizations Immunization Administration Dates Next Due Pneumococcal Polysaccharide PPV23 11/24/2013 Family History Medical History Relation Name Comments Lung cancer Father Colon cancer Mother Cancer Sister 1 Kidney disease Sister 2 Relation Name Status Comments Father Mother Sister 1 Sister 2 Social History Tobacco Use Types Packs/Day Years Used Date Smoking Tobacco: Every Day Alcohol Use Standard Drinks/Week Comments No 0 (1 standard drink = 0.6 oz pur e alcohol) Comments Unknown Sex and Gender Information Value Date Recorded Sex Assigned at Not on file Legal Sex Female 6:15 PM EDT Gender Identity Not on file Sexual Orientation Not on file Last Filed Vital Signs Vital Sign Reading Time Taken Comments Blood Pressure 117/75 11/12/2022 10:36 AM EDT Pulse 83 11/12/2022 10:36 AM EDT Temperature 36.7 C (98 F) 09/10/2017 1:36 PM EDT Respiratory Rate 16 09/10/2017 1:36 PM EDT Oxygen Saturation - - Inhaled Oxygen Concentration - - Weight 63.5 kg (140 lb) 11/12/2022 10:36 AM EDT Height 165.1 cm (5' 5 ) 11/12/2022 10:36 AM EDT Body Mass Index 23.3 11/12/2022 10:36 AM EDT Plan of Treatment Health Maintenance Due Date Last Done Comments [facility]-Depression Screening 1963 [facility]-/Child/Adol SDOH Screenings 1963 [facility]- SDOH Screenings 1981 [facility]-Adult SDOH Screenings 1981 [facility]-DTaP,Tdap,and Td Vaccine s (1 - Tdap) 1982 [facility]-Pap Smear 1984 [facility]-Cervical Cancer Screening 1993 [facility]-HPV/Cotest 1993 CT Colonography 2008 Colonoscopy 2008 FIT-DNA 2008 FIT 2008 FOBT 2008 Sigmoidoscopy 2008 [facility]-Colorectal Cancer Screening 2008 [facility]-Zoster Vaccines (1 of 2) 2013 [facility]-Pneumococcal Vaccine: 50 + Years (2 of 2 - PCV) 11/24/2014 11/24/2013 [id number] Vaccine (3 - season) 2024 09/04/2020, 07/24/2020 [facility]-Influenza Vaccine (#1) 2024 [facility]-RSV Vaccine: 60+ Years o r (1 - 1-dose 75+ series) 2038 HPV Vaccines Aged Out No longer eligi ble based on patient's age to complete this topic [facility]-HIB Vaccines Aged Out No longer e ligible based on patient's age to complete this topic [facility]-Hepatitis A Vaccines Aged Out No longer eligible based on patient's age to complete this topic [facility]-IPV Vaccines Aged Out No longer e ligible based on patient's age to complete this topic [facility]-Rotavirus Vaccines Aged Out No lo nger eligible based on patient's age to complete this topic Insurance [employer] Care Teams Hard Rock Drill Operator Relationship Specialty Start Date End Date Shane Kumar MD [address] [place] [address] PCP - General 09/06/20
--- OUTSIDE RECORDS SUMMARY | 2025-03-25 22:17 | XMS_ITS | Encounter Summary ---
Author Organization [facility] Address [address] [place] [address] Care Team Providers Care Brine Purifier Name Role Phone Shane Kumar MD Primary Care Provider + Encounter Details Date Type Department Care Team (Late st Contact Info) Description 03/13/2025 Telephone [facility] [address] [place] [address] Joel Lung Social History Tobacco Use Types Packs/Day Years [...] on file documented as of this encounter Miscellaneous Notes * Telephone Encounter - Joel Lung - 03/13/2025 1:20 PM EST Patient Call Reason for call: Upcoming Outcome of call: Broadcast call made Additional Notes: Automated Message Reminder Luisito Reilly documented in this encounter Plan of Treatment Upcoming Encounters Date Type Department Care Team (Late st Contact Info) Description 06/14/2025 10:15 AM EST Office Visit [facility] [address] [place] [phone] Shane Kumar MD [address] [place] [address] documented as of this encounter Visit Diagnoses Not on filedocumented in this encounter Care Teams Brine Purifier Relationship Specialty Start Date End Date Shane Kumar MD [address] [place] [address] PCP - General Family Medicine 03/09/24 documented as of this encounter
[2025-03-25 22:21] LABS: Lactate Venous 0.9 mmol/L (0.4-2.0); VBG HCO3 26.6 mmol/L (23-30); VBG PH 7.27 mmol/L (7.31-7.41); VBG PO2 65.4 mmol/L (28-40)
[2025-03-25 22:23] LABS: Hematocrit 37.6 % (37.0-47.0); Hemoglobin 12.5 g/dL (12.2-16.2); Immature Granulocytes % 0.3 %; Mean Corpuscular HGB Conc 33.2 g/dL (31.8-35.4); Mean Corpuscular Hemoglobin 30.3 pg (27.0-31.2); Mean Corpuscular Volume 91.3 fl (81-99); Nucleated Red Blood Cells % 0 %; Platelet Count 280 K/mm3 (142-424); Red Blood Count 4.12 M/mm3 (4.20-5.40); Red Cell Distribution Width-SD 41.1 fL; VBG PCO2 59.3 mmol/L (35-51); White Blood Count 11.1 K/mm3 (4.8-10.8)
[2025-03-25 22:26] LABS: Albumin Level 4.5 g/dl (3.5-5.0); Chloride 106 mmol/L (98-107); Potassium 4.1 mmoL/L (3.5-5.1); Sodium 147 mmol/L (136-145)
[2025-03-25] MEDS: MAGNESIUM SULFATE IN WATER 2 GM/50 ML PIGGYBACK IV (22:28)
[2025-03-25 22:29] LABS: Alanine Aminotransferase 15 U/L (12-78); Albumin/Globulin Ratio 1.6 (1.1-1.8); Alkaline Phosphatase 112 U/L (38-126); Anion Gap 16.1 mEq/L (5-15); Aspartate Amino Transferase 21 U/L (14-36); Blood Urea Nitrogen 20 mg/dl (7-17); Carbon Dioxide 29 mmol/L (22.0-30.0); Creatinine Clearance Estimated 55 mL/min (50-200); Creatinine,Serum 1.00 mg/dl (0.52-1.04); Estimated Glomerular Filt Rate 56 ml/min (>60); GFR (African American) 68 ML/MIN (>60); Globulin 2.8 g/dL (1.3-3.2); Total Protein,Serum 7.3 g/dl (6.3-8.2)
[2025-03-25] MEDS: 0.9 % SODIUM CHLORIDE 1000ML 1,000 ML 999 ML IV (22:29)
[2025-03-25 22:30] VITALS: BP 113/68; PULSE 88; RESP 19; O2SAT 99
[2025-03-25 22:30] LABS: Calcium 9.1 mg/dl (8.4-10.2); Glucose 98 mg/dl (74-100)
[2025-03-25 22:35] LABS: D-Dimer 0.40 ug/mL (0.0-0.5)
[2025-03-25] MEDS: ASPIRIN EC 81MG TABLET 243 MG PO (22:36)
[2025-03-25 22:39] LABS: NT Pro Brain Natriuretic Pep. 104 pg/mL (0-125)
[2025-03-25 22:42] LABS: Bilirubin,Total 0.1 mg/dl (0.2-1.3)
[2025-03-25 22:43] LABS: Troponin I < 0.01 ng/ml (0.00-0.034)
[2025-03-25 22:44] LABS: Coronavirus 19, PCR Not Detected (NotDetected); Influenza A, PCR Not Detected (NotDetected); Influenza B, PCR Not Detected (NotDetected)
[2025-03-25] MEDS: IPRATROPIUM/ALBUTEROL 3 ML NEB 9 ML IH (22:54)
[2025-03-25 23:01] VITALS: BP 135/72; PULSE 86; RESP 21; O2SAT 100
[2025-03-25 23:30] VITALS: BP 113/66; PULSE 81; RESP 18; O2SAT 98
[2025-03-25] MEDS: ALBUTEROL 0.083% 2.5 MG/3 ML NEB 20 MG IH (23:34)
[2025-03-25 23:35] LABS: Hepatitis C Ab Qual. W/ RFX NEGATIVE (Negative)
[2025-03-26] VITALS: BP 111/66; PULSE 85; RESP 22; O2SAT 98
[2025-03-26 00:30] VITALS: BP 117/62; PULSE 91; RESP 30; O2SAT 96
[2025-03-26 01:15] LABS: Troponin I 0.02 ng/ml (0.00-0.034)
[2025-03-26 01:48] VITALS: BP 114/67; PULSE 91; RESP 18; TEMP 36.7; O2SAT 94
[2025-03-26] MEDS: ALBUTEROL-HFA 90MCG/PUFF INHALER 8GM 2 PUFF IH (01:53)
[2025-03-26] MEDS: AEROCHAMBER/OPTIHALER 1 UNIT MC (01:54)
== END 2025-03-26 02:00 | disposition home or self-care (01) ==
PROVIDERS: Emergency Provider Student in an Organized Health Care Education/Training Program; PCP Family Medicine
DX: J44.1 Chronic obstructive pulmonary disease with (acute) exacerbation (principal); E87.29 Other acidosis; E87.0 Hyperosmolality and hypernatremia; F17.210 Nicotine dependence, cigarettes, uncomplicated; I11.0 Hypertensive heart disease with heart failure; I50.20 Unspecified systolic (congestive) heart failure
CPT/HCPCS: 71045; 80053; 82803; 83880; 84484; 85025; 85378; 86803; 87389; 87631; 93005; 96365; 99285; J3475; J7030